=== PATIENT | male | born 1940 | race Caucasian/White ===

== ENCOUNTER 2016-12-12 10:18 | Day surgery (SDC) | payer MEDICARE, OTHER ==
[~2016-12-12 10:18] MED LIST: CHONDR SU A NA/HYALUR INTRAOC KIT (SURGICARE) ONE; KETOROLAC TROMETHAMINE 0.45% 4 DROP/0.4 ML DROPERETTE OS PRN; LIDOCAINE 1% INJ-PF (10 MG/ML) 30 ML SDV ONE; MIDAZOLAM 2 MG/2 ML INJ ONE; PHENYLEPHRINE/KETOROLAC 1%-0.3% 4 ML VIAL ONE
[2016-12-12] MEDS: TROPICAMIDE 1% OPH SOLN 3 ML OS PRN ×3 (11:02→11:23)
[2016-12-12] MEDS: CYCLOPENTOLATE 0.2%/PHENYLEPHRINE 1% OPH SOLN 2 ML OS PRN ×3 (11:02→11:23)
[2016-12-12] MEDS: BESIFLOXACIN HCL 0.6% OPH SUSP 5 ML BOTTLE OS PRN ×3 (11:03→12:01)
[2016-12-12] MEDS: TETRACAINE HCL 0.5% OPH SOLN 2 ML OS PRN ×3 (11:04→11:36)
[2016-12-12] MEDS ORDERED: MIDAZOLAM 2 MG/2 ML INJ ONE (11:30)
--- NOTE | 2016-12-13 13:07 | [facility] OPERATIVE REPORT E ---
[facility] Operative Report NAME: LIA VILLASEÑOR AGE: 76Y DATE OF SURGERY: 12/12/2016 ROOM: PREOPERATIVE DIAGNOSES: 1. Cataract, left eye. 2. Pupil myosis, left eye. PROCEDURE: Complex cataract extraction with the use of a Malyugin ring due to poor pupillary dilation. SURGEON: HOWARD SHAFER M.D. ANESTHESIA: Topical. PROCEDURE: After obtaining appropriate consent, the patient's left eye was prepped and draped in sterile fashion as well as the surgeon in a sterile manner and cataract surgery was started. First a paracentesis blade was used to make a small side-port incision. Viscoelastic was used to inflate the anterior chamber. Next a 2.4 mm incision was made with the paracentesis blade. A continuous capsulorrhexis incision was made using a cystotome and Utrata forceps. Following this hydrodissection was carried out to make the lens fully loose and mobile and it was rotated 90 degrees. Following this, a ivmezo-lsz-iayptog technique was used to phacoemulsify the lens with a CDE of 12.44. The remaining cortex was removed with irrigation/aspiration. Provisc was instilled into the capsular bag to inflate the bag. A SN60WF, 21.0 diopter lens was placed. The remaining viscoelastic material was removed with irrigation/aspiration. Following this, a 10-0 nylon suture was used to close the incision and it was found to be watertight. Vigamox was instilled in the eye and a protective shield was placed over the eye. The patient returned to the postoperative recovery in stable condition. Prior to making the capsulorrhexis, a Malyugin ring was inserted due to poor pupillary dilation. This was removed at the end of the case. DICTATING PHYSICIAN: HOWARD SHAFER M.D. [id number] PHY#: [id number] ID: [id number] JOB#: [id number] ACCT: [id number] cc:HOWARD SHAFER M.D. >
--- NOTE | 2016-12-13 13:12 | [facility] DISCHARGE SUMMARY E ---
[facility] Discharge Summary NAME: LIA VILLASEÑOR AGE: 76Y ADMITTED: 12/12/2016 DISCHARGED: 12/12/2016 HISTORY: This is a 76-year-old male who underwent complex cataract extraction of the left eye with use of a Malyugin ring. DIAGNOSES: 1. Cataract, left eye. 2. Pupil myosis, left eye. 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 He should be on a regular diet. No bending at his waist. No heavy lifting. He should use his Besivance, Ilevro, and Durezol at 3 p.m. and 8 p.m. and sleep with a rigid shield, and I will see him for his one day postoperative tomorrow. DICTATING PHYSICIAN: HOWARD SHAFER M.D. [id number] PHY#: [id number] ID: [id number] JOB#: [id number] ACCT: [id number] cc:HOWARD SHAFER M.D. >
== END 2016-12-12 12:45 | disposition home or self-care (01) ==
LOC: SC 10:18
PROVIDERS: ATTEND Internal Medicine
PROC: 08RK3JZ Replacement of Left Lens with Synthetic Substitute, Percutaneous Approach (ICD-10-PCS; principal; 2016-12-12 11:30)
DX: H25.12 Age-related nuclear cataract, left eye (principal); H57.03 Miosis; F17.210 Nicotine dependence, cigarettes, uncomplicated; E11.9 Type 2 diabetes mellitus without complications; D64.9 Anemia, unspecified; K21.9 Gastro-esophageal reflux disease without esophagitis; Z79.84 Long term (current) use of oral hypoglycemic drugs; Z79.899 Other long term (current) drug therapy; Z85.46 Personal history of malignant neoplasm of prostate; Z85.028 Personal history of other malignant neoplasm of stomach
CPT/HCPCS: 66982; 82962; V2632; J2250; J3490 ×2; C9447; 142

== ENCOUNTER 2017-01-17 17:02 | Emergency (ER) | payer OTHER, MEDICARE ==
[2017-01-17] MEDS ORDERED: NORMAL SALINE 1000 ML 1,000 ML IV ONE ×2 (17:36→19:56)
--- NOTE | 2017-01-17 17:39 | ER Document Report ---
ED Medical Screen (RME) - General Chief Complaint: Weakness Stated Complaint: WEAKNESS Time Seen by Provider: 01/17/17 17:35 Mode of Arrival: Wheelchair Information source: Patient TRAVEL OUTSIDE OF THE [place] IN LAST 30 DAYS: No - HPI Patient complains to provider of: weakness Onset: Other - pt c/o weakness, fatigue, and wt. loss secondary to anorexia for several days - Related Data Allergies/Adverse Reactions: No Known Allergies Allergy (Verified 01/17/17 17:11) Past Medical History - Past Medical History Cardiac Medical History: Denies: Hx Heart Attack, Hx Hypertension Pulmonary Medical History: Denies: Hx Asthma Neurological Medical History: Denies: Hx Cerebrovascular Accident, Hx Seizures Endocrine Medical History: Reports: Hx Diabetes Mellitus Type 2 Renal/ Medical History: Denies: Hx Peritoneal Dialysis GI Medical History: Reports: Hx Gastroesophageal Reflux Disease. Denies: Hx Hepatitis, Hx Hiatal Hernia, Hx Ulcer Infectious Medical History: Denies: Hx Hepatitis Past Surgical History: Reports: Hx Pacemaker. Denies: Hx Open Heart Surgery. Comment Only: Hx Cardiac Surgery - pacemaker for bradycardia Physical Exam - Vital signs Vitals: Temp Pulse Resp BP Pulse Ox 97.8 F 64 16 121/90 H 100 01/17/17 17:12 01/17/17 17:12 01/17/17 17:12 01/17/17 17:12 01/17/17 17:12 Course - Vital Signs Vital signs: Temp Pulse Resp BP Pulse Ox 97.8 F 64 16 121/90 H 100 01/17/17 17:12 01/17/17 17:12 01/17/17 17:12 01/17/17 17:12 01/17/17 17:12
--- NOTE | 2017-01-17 18:33 | RADIOLOGY REPORT (SQ) ---
EXAM DESCRIPTION: CHEST PA/LAT COMPLETED DATE/TIME: 01/17/2017 6:20 pm REASON FOR STUDY: weakness COMPARISON: None. EXAM PARAMETERS: NUMBER OF VIEWS: two views TECHNIQUE: Digital Frontal and Lateral radiographic views of the chest acquired. RADIATION DOSE: NA LIMITATIONS: none FINDINGS: LUNGS AND PLEURA: The lungs are significantly hyperexpanded. There is no infiltrate or pl eural effusion. There is questionable 18 mm nodule in the left upper lobe. There are confluent rib and scapular markings at this location. MEDIASTINUM AND HILAR STRUCTURES: No masses or contour abnormalities. HEART AND VASCULAR STRUCTURES: Heart normal size. No evidence for failure. BONES: No acute findings. HARDWARE: Pacemaker OTHER: No other significant finding. IMPRESSION: 1. Chronic lung changes no acute cardiopulmonary disease. 2. Questionable 18 mm pulmonary nodule. TECHNICAL DOCUMENTATION: JOB ID: [id number]- All Rights Reserved
[2017-01-17 18:41] LABS: ABSOLUTE BASOPHILS # (AUTO) 0.1 10^3/uL (0.0-0.2); ABSOLUTE LYMPHOCYTES (AUTO) 2.4 10^3/uL (0.5-4.7); ABSOLUTE MONOCYTES (AUTO) 0.5 10^3/uL (0.1-1.4); ABSOLUTE NEUT (AUTO) 5.4 10^3/uL (1.7-8.2); BASOPHILS % (AUTO) 0.8 % (0-2); EOSINOPHILS % (AUTO) 0.6 % (0-6); HEMATOCRIT 45.9 % (37.9-51.0); HEMOGLOBIN 16.3 g/dL (13.5-17.0); LYMPHOCYTES % (AUTO) 28.6 % (13-45); MEAN CORPUSCULAR HEMOGLOBIN 35.7 pg (27.0-33.4); MEAN CORPUSCULAR HGB CONC 35.5 g/dL (32.0-36.0); MEAN CORPUSCULAR VOLUME 100 fl (80-97); MONOCYTES % (AUTO) 6.2 % (3-13); RED BLOOD COUNT 4.57 10^6/uL (4.35-5.55); RED CELL DISTRIBUTION WIDTH 14.8 % (11.5-14.0); SEGMENTED NEUTROPHILS % (AUTO) 63.8 % (42-78); WHITE BLOOD COUNT 8.4 10^3/uL (4.0-10.5)
--- NOTE | 2017-01-17 19:32 | EKG REPORT ---
SEVERITY:- ABNORMAL ECG - ATRIAL-PACED COMPLEXES FIRST DEGREE AV BLOCK BORDERLINE RIGHT AXIS DEVIATION SUSPECT OLD LATERAL FL : Confirmed by: Gagandeep Del Toro MD 17-Jan-2017 19:32:12
--- NOTE | 2017-01-17 19:48 | ER Document Report ---
ED General - General Chief Complaint: Weakness Stated Complaint: WEAKNESS Time Seen by Provider: 01/17/17 17:35 Mode of Arrival: Wheelchair Notes: The patient is a 76-year-old male, past medical history gastric and esophageal cancer several years ago in remission, presents with generalized weakness for the past several weeks. According to his son, the patient only drinks coffee and Pepsi and no water. He had a small amount of diarrhea, but denies nausea, vomiting, abdominal pain, fevers, chest pain, shortness of breath, back pain, current diarrhea, focal weakness, numbness, tingling or headache. TRAVEL OUTSIDE OF THE [place] IN LAST 30 DAYS: No - Related Data Allergies/Adverse Reactions: No Known Allergies Allergy (Verified 01/17/17 17:11) Past Medical History - General Information source: Patient - Social History Smoking Status: Current Every Day Smoker Family History: Reviewed & Not Pertinent - Past Medical History Cardiac Medical History: Denies: Hx Heart Attack, Hx Hypertension Pulmonary Medical History: Denies: Hx Asthma Neurological Medical History: Denies: Hx Cerebrovascular Accident, Hx Seizures Endocrine Medical History: Reports: Hx Diabetes Mellitus Type 2 Renal/ Medical History: Denies: Hx Peritoneal Dialysis GI Medical History: Reports: Hx Gastroesophageal Reflux Disease. Denies: Hx Hepatitis, Hx Hiatal Hernia, Hx Ulcer Infectious Medical History: Denies: Hx Hepatitis Past Surgical History: Reports: Hx Pacemaker. Denies: Hx Open Heart Surgery. Comment Only: Hx Cardiac Surgery - pacemaker for bradycardia Review of Systems - Review of Systems Notes: REVIEW OF SYSTEMS: CONSTITUTIONAL: -fevers, -chills EENT: -eye pain, -difficulty swallowing, -nasal congestion CARDIOVASCULAR:-chest pain, -syncope. RESPIRATORY: -cough, -SOB GASTROINTESTINAL: -abdominal pain, - nausea, -vomiting, -diarrhea GENITOURINARY: -dysuria, -hematuria MUSCULOSKELETAL: -back pain, -neck pain SKIN: -rash or skin lesions. HEMATOLOGIC: -easy bruising or bleeding. LYMPHATIC: -swollen, enlarged glands. NEUROLOGICAL: -altered mental status or loss of consciousness, -headache, - neurologic symptoms PSYCHIATRIC: -anxiety, -depression. ALL OTHER SYSTEMS REVIEWED AND NEGATIVE. Physical Exam - Vital signs Vitals: Temp Pulse Resp BP Pulse Ox 97.8 F 64 16 121/90 H 100 01/17/17 17:12 01/17/17 17:12 01/17/17 17:12 01/17/17 17:12 01/17/17 17:12 - Notes Notes: PHYSICAL EXAMINATION: GENERAL: Well-appearing, well-nourished and in no acute distress. HEAD: Atraumatic, normocephalic. EYES: Pupils equal round and reactive to light, extraocular movements intact, sclera anicteric, conjunctiva are normal. ENT: nares patent, oropharynx clear without exudates. Moist mucous membranes. NECK: Normal range of motion, supple without lymphadenopathy LUNGS: Breath sounds clear to auscultation bilaterally and equal. No wheezes rales or rhonchi. HEART: Regular rate and rhythm without murmurs ABDOMEN: Soft, nontender, normoactive bowel sounds. No guarding, no rebound. No masses appreciated. EXTREMITIES: Normal range of motion, no pitting or edema. No cyanosis. NEUROLOGICAL: Cranial nerves grossly intact. Normal speech, normal gait. Normal sensory and motor exams. PSYCH: Normal mood, normal affect. SKIN: Warm, Dry, normal turgor, no rashes or lesions noted. Course - Re-evaluation Re-evalutation: Patient appears well. He is drinking in the emergency room and has no focal neuro signs. Labs are unremarkable, other than a slight hypokalemia. Provided patient with potassium repletion instructed him to follow-up with his primary care physician for a recheck of his potassium. Given strict return precautions and he understands. - Vital Signs Vital signs: Temp Pulse Resp BP Pulse Ox 97.8 F 72 16 147/99 H 100 01/17/17 17:12 01/17/17 19:42 01/17/17 19:42 01/17/17 19:42 01/17/17 19:42 - Laboratory Result Diagrams: 01/17/17 17:50 01/17/17 19:40 Laboratory results interpreted by me: 01/17/17 01/17/17 01/17/17 17:50 19:40 20:24 MCV 100 H MCH 35.7 H RDW 14.8 H Plt Count 111 L Sodium 135.7 L Potassium 2.9 L* Direct Bilirubin 0.5 H AST 82 H ALT 166 H Creatine Kinase 32 L Ur Leukocyte Esterase SMALL H - EKG Interpretation by Oh EKG shows normal: Sinus rhythm, [place], Intervals, QRS Complexes, ST-T Waves Rate: Normal Discharge - Discharge Clinical Impression: Hypokalemia, Generalized weakness Condition: Stable Disposition: HOME, SELF-CARE Additional Instructions: HYPOKALEMIA: You have an abnormally decreased level of serum potassium. Hypokalemia may cause weakness, fatigue, or heart rhythm abnormalities. Sometimes there are no symptoms at all. Usually, low serum potassium is due to taking diuretics ( water pills). It can also be due to excessive vomiting or diarrhea. If no obvious cause is evident, further evaluation will be necessary. Treatment is usually oral potassium supplements. Take these exactly as prescribed. You may also want to select foods which are naturally high in potassium -- fruits (such as bananas, cantaloupe, grapes, oranges, prunes, tomatoes), fresh vegetables (potatoes, spinach, beans, peas), orange or tomato juice, tomato pasta sauce, milk, fish (halibut, tuna, salmon, nu) A follow-up blood test is usually performed to assure that the potassium is returning to normal. Call the physician if you suffer severe weakness, muscle twitching or cramping, palpitations (pounding or irregular heartbeat), or any other new or alarming symptoms. POTASSIUM: A potassium-containing medication has been prescribed. This is usually used to treat potassium depletion caused by diuretics or by vomiting and diarrhea. This type of medicine is available in many forms, including elixirs, powders, fruity drinks, and pills. If one type is not working out for you, another can be substituted. Potassium can cause stomach upset. This can be prevented by taking it with meals. Do not take more than your doctor recommends. Notify your doctor if you develop repeated vomiting, black or bloody stool , severe weakness or numbness. FOODS HIGH IN POTASSIUM: baked potato with skin 1080 mg tomato pasta sauce, 1 cup 940 sweet potato with skin 690 orange juice, 1 cup 480 haitian chard 480 tuna, 3 oz 480 cantaloupe, 1 cup 430 banana 420 spinach 420 yogurt, plain, nofat, 6 oz 400 milk, 1 cup 370 watermelon, 2 cups 340 tomato, 1/2 cup 210 Other foods high in potassium are most other fruits and vegetables and fish. FOLLOW-UP CARE: If you have been referred to a physician for follow-up care, call the physician s office for an appointment as you were instructed or within the next two days. If you experience worsening or a significant change in your symptoms, notify the physician immediately or return to the Emergency Department at any time for re-evaluation.
[2017-01-17 20:17] LABS: ALANINE AMINOTRANSFERASE 166 U/L (21-72); ALBUMIN 3.8 g/dL (3.5-5.0); ALKALINE PHOSPHATASE 108 U/L (38-126); ANION GAP 10 (5-19); ASPARTATE AMINO TRANSFERASE 82 U/L (17-59); BILIRUBIN,DIRECT 0.5 mg/dL (0.0-0.4); BILIRUBIN,TOTAL 0.9 mg/dL (0.2-1.3); BLOOD UREA NITROGEN 12 mg/dL (7-20); CALCIUM 8.8 mg/dL (8.4-10.2); CARBON DIOXIDE 27 mmol/L (22-30); CHLORIDE 99 mmol/L (98-107); CREATINE KINASE 32 U/L (55-170); CREATININE RESULT 0.81 mg/dL (0.52-1.25); GLUCOSE 110 mg/dL (75-110); SODIUM 135.7 mmol/L (137-145); TOTAL PROTEIN 6.3 g/dL (6.3-8.2)
[2017-01-17 20:19] LABS: POTASSIUM 2.9 mmol/L (3.6-5.0)
[2017-01-17 20:30] LABS: CREATINE KINASE MB 0.32 ng/mL (<4.55); TROPONIN I 0.024 ng/mL
[2017-01-17] MEDS ORDERED: POTASSIUM CHLORIDE 10 MEQ TABLET.SA PO ONE (20:34)
[2017-01-17] MEDS ORDERED: POTASSIUM CHLORIDE 20 MEQ/15 ML UDCUP PO ONE (20:35)
[2017-01-17 21:02] LABS: APPEARANCE,URINE SLIGHTLY-CLOUDY; BILIRUBIN,URINE NEGATIVE (NEGATIVE); GLUCOSE, URINE NEGATIVE (NEGATIVE); KETONES,URINE NEGATIVE (NEGATIVE); LEUKOCYTE ESTERASE,URINE SMALL (NEGATIVE); NITRITE,URINE NEGATIVE (NEGATIVE); PROTEIN,URINE NEGATIVE (NEGATIVE); URINE SPECIFIC GRAVITY 1.005; UROBILINOGEN,URINE NEGATIVE mg/dL (<2.0)
[2017-01-17 21:46] VITALS: BP 132/86
== END 2017-01-17 21:59 | disposition home or self-care (01) ==
LOC: ER 17:02
DX: R53.1 Weakness (principal); E87.6 Hypokalemia; R19.7 Diarrhea, unspecified; E11.9 Type 2 diabetes mellitus without complications; F17.200 Nicotine dependence, unspecified, uncomplicated; Z85.01 Personal history of malignant neoplasm of esophagus; Z85.028 Personal history of other malignant neoplasm of stomach; Z95.0 Presence of cardiac pacemaker
CPT/HCPCS: 93005; 99285; 96360; 96361; 36415; 82553; 82550; 85025; 80053; 81001; 84484; 71020; 93010; J7030

== ENCOUNTER 2017-02-07 18:55 | Inpatient (IN) | payer OTHER, MEDICARE ==
[2017-02-07] MEDS ORDERED: NORMAL SALINE 1000 ML 1,000 ML IV ONE (19:29)
--- NOTE | 2017-02-07 19:32 | ER Document Report ---
ED Medical Screen (RME) - General Chief Complaint: Weakness Stated Complaint: ABDOMINAL PAINS Time Seen by Provider: 02/07/17 19:29 Notes: 76-year-old male complaining of the past 2 weeks, became weaker while in the emergency department with his and decided to be seen. TRAVEL OUTSIDE OF THE [place] IN LAST 30 DAYS: No - Related Data Allergies/Adverse Reactions: No Known Allergies Allergy (Verified 02/07/17 19:14) Past Medical History - General Information source: Patient - Social History Cigarette use (# per day): No Frequency of alcohol use: None Drug Abuse: None Lives with: Spouse/Significant other - Past Medical History Cardiac Medical History: Denies: Hx Heart Attack, Hx Hypertension Pulmonary Medical History: Denies: Hx Asthma Neurological Medical History: Denies: Hx Cerebrovascular Accident, Hx Seizures Endocrine Medical History: Reports: Hx Diabetes Mellitus Type 2 Renal/ Medical History: Denies: Hx Peritoneal Dialysis GI Medical History: Reports: Hx Gastroesophageal Reflux Disease. Denies: Hx Hepatitis, Hx Hiatal Hernia, Hx Ulcer Infectious Medical History: Denies: Hx Hepatitis Past Surgical History: Reports: Hx Pacemaker. Denies: Hx Open Heart Surgery. Comment Only: Hx Cardiac Surgery - pacemaker for bradycardia Physical Exam - Vital signs Vitals: Pulse Resp BP Pulse Ox 77 18 105/80 100 02/07/17 19:10 02/07/17 19:10 02/07/17 19:10 02/07/17 19:10 - Notes Notes: General cool to the touch HEENT normocephalic atraumatic, tip of the nose is slightly blue, this appears to be from superficial veins rather than true cyanosis Heart-regular rate and rhythm Lungs clear to auscultation bilaterally Skin is cool to the touch normal turgor. Course - Vital Signs Vital signs: Temp Pulse Resp BP Pulse Ox 77 18 105/80 100 02/07/17 19:10 02/07/17 19:10 02/07/17 19:10 02/07/17 19:10
[2017-02-07 20:27] LABS: VENOUS BLOOD BASE EXCESS -1.6 mmol/L; VENOUS BLOOD HCO3 28.7 mmol/L (20-32)
[2017-02-07 20:34] LABS: VENOUS BLOOD PCO2 76.1 mmHg (35-63)
[2017-02-07 20:42] LABS: ABSOLUTE BASOPHILS # (AUTO) 0.1 10^3/uL (0.0-0.2); ABSOLUTE LYMPHOCYTES (AUTO) 2.2 10^3/uL (0.5-4.7); ABSOLUTE MONOCYTES (AUTO) 0.5 10^3/uL (0.1-1.4); ABSOLUTE NEUT (AUTO) 5.9 10^3/uL (1.7-8.2); BASOPHILS % (AUTO) 0.8 % (0-2); EOSINOPHILS % (AUTO) 0.2 % (0-6); HEMATOCRIT 41.1 % (37.9-51.0); HEMOGLOBIN 14.6 g/dL (13.5-17.0); HGB HCT DIFFERENCE 2.7; LYMPHOCYTES % (AUTO) 25.4 % (13-45); MEAN CORPUSCULAR HEMOGLOBIN 35.8 pg (27.0-33.4); MEAN CORPUSCULAR HGB CONC 35.5 g/dL (32.0-36.0); MEAN CORPUSCULAR VOLUME 101 fl (80-97); MONOCYTES % (AUTO) 5.4 % (3-13); RED BLOOD COUNT 4.07 10^6/uL (4.35-5.55); SEGMENTED NEUTROPHILS % (AUTO) 68.2 % (42-78); WHITE BLOOD COUNT 8.7 10^3/uL (4.0-10.5)
[2017-02-07 20:46] LABS: VENOUS BLOOD PH 7.19 (7.30-7.42)
[2017-02-07 20:50] LABS: ALANINE AMINOTRANSFERASE 173 U/L (21-72); ALBUMIN 4.5 g/dL (3.5-5.0); ALKALINE PHOSPHATASE 128 U/L (38-126); ANION GAP 15 (5-19); ASPARTATE AMINO TRANSFERASE 137 U/L (17-59); BILIRUBIN,DIRECT 0.7 mg/dL (0.0-0.4); BILIRUBIN,TOTAL 1.2 mg/dL (0.2-1.3); BLOOD UREA NITROGEN 24 mg/dL (7-20); CALCIUM 9.5 mg/dL (8.4-10.2); CARBON DIOXIDE 24 mmol/L (22-30); CHLORIDE 100 mmol/L (98-107); CREATINE KINASE 55 U/L (55-170); CREATININE RESULT 1.08 mg/dL (0.52-1.25); GLUCOSE 157 mg/dL (75-110); LIPASE 131.1 U/L (23-300); POTASSIUM 3.6 mmol/L (3.6-5.0); SODIUM 139.3 mmol/L (137-145); TOTAL PROTEIN 7.3 g/dL (6.3-8.2)
[2017-02-07] MEDS ORDERED: CEFEPIME 2 GM/D5W RTU 2 GM/50 ML RTUPB IV ONE (20:56)
[2017-02-07] MEDS ORDERED: VANCOMYCIN HCL INJ 1000 MG VIAL IV ONE (20:56)
--- NOTE | 2017-02-07 20:56 | RADIOLOGY REPORT (SQ) ---
EXAM DESCRIPTION: CHEST SINGLE VIEW COMPLETED DATE/TIME: 02/07/2017 8:35 pm REASON FOR STUDY: weakness, hypothermia COMPARISON: 01/17/2017 NUMBER OF VIEWS: One view. TECHNIQUE: Single frontal radiographic view of the chest acquired. LIMITATIONS: None. FINDINGS: LUNGS AND PLEURA: Again noted is a possible nodule within the left upper lobe. No new opa cities, masses or pneumothorax. No pleural effusion. Attenuated blood vessels and flattened santos-diap hragms. MEDIASTINUM AND HILAR STRUCTURES: No masses. Contour normal. HEART AND VASCULAR STRUCTURES: Heart normal in size. Normal vasculature. BONES: No acute findings. HARDWARE: None in the chest. OTHER: No other significant finding. IMPRESSION: COPD. NO ACUTE RADIOGRAPHIC FINDING IN THE CHEST. AGAIN NOTED IS A POSSIBLE NODULE WIT HIN THE LEFT UPPER LOBE. FOLLOW-UP CHEST CT RECOMMENDED. TECHNICAL DOCUMENTATION: JOB ID: [id number] [employer]- All Rights Reserved
[2017-02-07 21:01] LABS: CREATINE KINASE MB 0.5 ng/mL (<4.55); TROPONIN I 0.023 ng/mL
[2017-02-07 22:18] LABS: PROTHROMBIN TIME 16.2 SEC (11.4-15.4)
--- NOTE | 2017-02-07 22:42 | ER Document Report ---
ED General - General Chief Complaint: Weakness Stated Complaint: ABDOMINAL PAINS Time Seen by Provider: 02/07/17 19:29 Notes: Patient is a 76-year-old male who presents emergency department with his son and [id number]-fdy complaining of weakness, decreased appetite over the past 2 weeks. Was last seen at the [facility] on Friday. Denies any fever, chills, nausea, vomiting, diarrhea constipation, decreased urinary output, pyuria, hematuria. Denies any abdominal pain at this time. Per son's report his dad is been losing weight for approximately 6 months and has been seen at the [facility] for this but just told to continue Ensure and intake of calories. Otherwise son denies any other acute medical problems. He states that he is diabetic on metformin. Otherwise he admits to previous histories of esophageal cancer status post resection in the , and prostate cancer that has been in remission. He states that even with his recent weight loss over the past 6 months he has not had any repeat PET scans. TRAVEL OUTSIDE OF THE [place] IN LAST 30 DAYS: No - Related Data Allergies/Adverse Reactions: No Known Allergies Allergy (Verified 02/07/17 19:14) Past Medical History - General Information source: Patient - Social History Smoking Status: Smoker,Current Status Unk Cigarette use (# per day): No Frequency of alcohol use: None Drug Abuse: None Lives with: Spouse/Significant other Family History: Reviewed & Not Pertinent - Past Medical History Cardiac Medical History: Denies: Hx Heart Attack, Hx Hypertension Pulmonary Medical History: Denies: Hx Asthma Neurological Medical History: Denies: Hx Cerebrovascular Accident, Hx Seizures Endocrine Medical History: Reports: Hx Diabetes Mellitus Type 2 Renal/ Medical History: Denies: Hx Peritoneal Dialysis GI Medical History: Reports: Hx Gastroesophageal Reflux Disease. Denies: Hx Hepatitis, Hx Hiatal Hernia, Hx Ulcer Infectious Medical History: Denies: Hx Hepatitis Past Surgical History: Reports: Hx Pacemaker. Denies: Hx Open Heart Surgery. Comment Only: Hx Cardiac Surgery - pacemaker for bradycardia Review of Systems - Review of Systems Constitutional: See HPI EENT: No symptoms reported Cardiovascular: No symptoms reported Respiratory: No symptoms reported Gastrointestinal: See HPI Genitourinary: No symptoms reported Musculoskeletal: No symptoms reported Neurological/Psychological: See HPI -: Yes All other systems reviewed and negative Physical Exam - Vital signs Vitals: Pulse Resp BP Pulse Ox 77 18 105/80 100 02/07/17 19:10 02/07/17 19:10 02/07/17 19:10 02/07/17 19:10 - Notes Notes: PHYSICAL EXAM GENERAL: Cachectic, alert, interacts well. HEAD: Normocephalic, atraumatic. EYES: Pupils equal, round, and reactive to light. Extraocular movements intact. ENT: Oral mucosa moist, tongue midline. cyanotic around his lips and nose NECK: Full range of motion. Supple. Trachea midline. LUNGS: Clear to auscultation bilaterally, no wheezes, rales, or rhonchi. No respiratory distress. HEART: Regular rate and rhythm. No murmurs, gallops, or rubs. ABDOMEN: Soft, nondistended, positive murphys sign. No guarding, rebound, or rigidity.. Bowel sounds present in all 4 quadrants. EXTREMITIES: Moves all 4 extremities spontaneously. No edema, radial and dorsalis pedis pulses 2/4 bilaterally. No cyanosis. NEUROLOGICAL: Alert and oriented x4. Normal speech. PSYCH: Normal affect, normal mood. SKIN: Warm, dry, normal turgor. No rashes or lesions noted. Course - Re-evaluation Re-evalutation: 02/07/17 19:30 Patient is a 76-year-old male who presents emergency department with decreased appetite for 2 weeks. Labs show evidence of sepsis based on hypothermic rectal temperature of 96.1, lactic acid of 4.5 without any elevation of white blood cell count, and evidence of respiratory acidosis on venous blood gas with a pH of 7.19 and a PCO2 of 76. Patient initiated on BiPAP for respiratory acidosis. Concern for abdominal pathology given right upper quadrant tenderness and elevated LFTs. Right upper quadrant ultrasound ordered, patient initiated on broad-spectrum antibiotics, IV fluids. 02/07/17 22:45 Right upper quadrant ultrasound with evidence of perihepatic ascites but no evidence of common bile duct stones or cholecystitis. Given concerns for sepsis and concern for abdominal pathology I have consulted night hospitalist Dr. Stevens for admission. 02/07/2017 23:30 Dr. Stevens requesting additional workup in the emergency department given source unidentified for sepsis. cyanosis is improved and repeat gas shows acidosis is resolved. After IV hydration and broad-spectrum antibiotics lactic his dropped to 1.8. I discussed this patient with supervising physician Dr. Douglas Nolasco who recommends that the patient cannot be discharged home given respiratory acidosis and severe sepsis and meets inpatient criteria. 02/08/17 2:30 Patient accepted for admission under Dr. Stevens for sepsis. Patient states he is feeling much better now that he has been on BiPAP. Per [facility] protocol and guidelines, this case was discussed with supervising physician Dr. Douglas Nolasco prior to admission - Vital Signs Vital signs: Temp Pulse Resp BP Pulse Ox 97.7 F 81 19 130/92 H 100 02/08/17 06:05 02/08/17 06:05 02/08/17 06:05 02/08/17 06:05 02/08/17 06:05 - Laboratory Result Diagrams: 02/07/17 19:45 02/08/17 03:48 Laboratory results interpreted by me: 02/07/17 02/07/17 02/07/17 19:26 19:45 19:45 RBC 4.07 L MCV 101 H MCH 35.8 H RDW 15.0 H Plt Count 96 L PT Carbonic Acid ABG pH ABG pCO2 ABG pO2 ABG O2 Saturation VBG pH VBG pCO2 BUN 24 H Glucose 157 H POC Glucose 149 H Lactic Acid Direct Bilirubin 0.7 H AST 137 H ALT 173 H Alkaline Phosphatase 128 H Urine Blood Urine Urobilinogen Ur Leukocyte Esterase 02/07/17 02/07/17 02/07/17 19:45 19:45 21:50 RBC MCV MCH RDW Plt Count PT 16.2 H Carbonic Acid ABG pH ABG pCO2 ABG pO2 ABG O2 Saturation VBG pH 7.19 L* VBG pCO2 76.1 H* BUN Glucose POC Glucose Lactic Acid 4.5 H Direct Bilirubin AST ALT Alkaline Phosphatase Urine Blood Urine Urobilinogen Ur Leukocyte Esterase 02/07/17 02/08/17 22:10 02:25 RBC MCV MCH RDW Plt Count PT Carbonic Acid 1.02 L ABG pH 7.47 H ABG pCO2 33.8 L ABG pO2 205.0 H ABG O2 Saturation 99.5 H VBG pH VBG pCO2 BUN Glucose POC Glucose Lactic Acid Direct Bilirubin AST ALT Alkaline Phosphatase Urine Blood SMALL H Urine Urobilinogen 2.0 H Ur Leukocyte Esterase TRACE H - Diagnostic Test Radiology reviewed: Reports reviewed - EKG Interpretation by Me EKG shows normal: Sinus rhythm Rate: Normal Rhythm: NSR Critical Care Note - Critical Care Note Total time excluding time spent on procedures (mins): 35 Comments: 35 minutes of critical care time spent in direct contact evaluating and reevaluating the patient, treating symptoms, reviewing labs and studies and speaking with family and consultants excluding any procedures Discharge - Discharge Clinical Impression: Respiratory acidosis Sepsis Qualifiers: Sepsis type: sepsis due to unspecified organism Qualified Code(s): A41.9 - Sepsis, unspecified organism Condition: Stable Disposition: ADMITTED INPATIENT Admitting Provider: [facility] Unit Admitted: Telemetry
[2017-02-07 22:43] LABS: APPEARANCE,URINE SLIGHTLY-CLOUDY; BILIRUBIN,URINE NEGATIVE (NEGATIVE); GLUCOSE, URINE NEGATIVE (NEGATIVE); KETONES,URINE NEGATIVE (NEGATIVE); LEUKOCYTE ESTERASE,URINE TRACE (NEGATIVE); NITRITE,URINE NEGATIVE (NEGATIVE); PROTEIN,URINE NEGATIVE (NEGATIVE); URINE SPECIFIC GRAVITY 1.018
[2017-02-07 23:37] LABS: VENOUS BLOOD BASE EXCESS 2.9 mmol/L; VENOUS BLOOD HCO3 29.7 mmol/L (20-32); VENOUS BLOOD PCO2 55.9 mmHg (35-63); VENOUS BLOOD PH 7.34 (7.30-7.42)
--- NOTE | 2017-02-08 00:17 | EKG REPORT ---
SEVERITY:- ABNORMAL ECG - ATRIAL-PACED COMPLEXES FIRST DEGREE AV BLOCK NONSPECIFIC ST-T CHANGES : Confirmed by: Kayy Rodriguez 08-Feb-2017 00:17:34
--- NOTE | 2017-02-08 00:29 | RADIOLOGY REPORT (SQ) ---
EXAM DESCRIPTION: U/S ABDOMEN COMPLETE W/DOPPLER COMPLETED DATE/TIME: 02/07/2017 11:49 pm REASON FOR STUDY: RUQ tenderness COMPARISON: None. TECHNIQUE: Dynamic and static grayscale images acquired of the abdomen and recorded on PACS. Additio nal selected color Doppler and spectral images recorded. LIMITATIONS: None. FINDINGS: PANCREAS: No masses. Visualized pancreatic duct normal caliber. LIVER: No masses. Echotexture normal. Small perihepatic fluid. LIVER VASCULATURE: Normal directional flow of the main portal vein and hepatic veins. GALLBLADDER: No stones. Normal wall thickness. No pericholecystic fluid. ULTRASOUND-DETECTED CASTILLO'S SIGN: Negative. INTRAHEPATIC DUCTS AND COMMON DUCT: CBD and intrahepatic ducts normal caliber. No filling defects. INFERIOR VENA CAVA: Normal flow. AORTA: No aneurysm. Atherosclerosis. RIGHT KIDNEY: Normal size. Mild chronic medicorenal disease. No solid or suspicious masses. No h ydronephrosis. No calcifications. LEFT KIDNEY: Normal size. Mild chronic medicorenal disease. No solid or suspicious masses. No h ydronephrosis. No calcifications. 6.1 cm likely benign mildly complicated cyst not definitively ch aracterized. SPLEEN: Normal size. No solid masses. PERITONEAL AND PLEURAL SPACES: No ascites or effusions. OTHER: No other significant finding. IMPRESSION: Small perihepatic ascites. Else, no acute findings. TECHNICAL DOCUMENTATION: JOB ID: [id number]- All Rights Reserved
[2017-02-08] MEDS ORDERED: ACETAMINOPHEN 325 MG TABLET PO PRN (02:50)
[2017-02-08] MEDS ORDERED: MAGNESIUM HYDROXIDE SUSP 30 ML UDCUP PO PRN (02:50)
[2017-02-08] MEDS ORDERED: IPRATROPIUM/ALBUTEROL 0.5-2.5 MG/3 ML AMPUL NEB PRN (02:50)
[2017-02-08] MEDS ORDERED: MAG HYDROX/AL HYDROX/SIMETH SUSP 30 ML UDCUP PO PRN (02:50)
[2017-02-08 02:52] LABS: ARTERIAL BLOOD BASE EXCESS 0.8 mmol/L; ARTERIAL BLOOD O2 SATURATION 99.5 % (94-98)
[2017-02-08] MEDS ORDERED: TRAZODONE HCL 50 MG TABLET PO PRN (02:55)
[2017-02-08] MEDS ORDERED: KETOROLAC TROMETHAMINE 0.45% 4 DROP/0.4 ML DROPERETTE OP PRN (02:55)
[2017-02-08] MEDS ORDERED: TRAMADOL HCL 50 MG TABLET PO PRN (02:55)
[2017-02-08] MEDS ORDERED: NICOTINE 14 MG/24 HR PATCH.TD24 TD ONE (02:57)
[2017-02-08] MEDS ORDERED: FOLIC ACID INJ 5 MG/1 ML 10 ML VIAL IV ONE (02:58)
[2017-02-08] MEDS ORDERED: CYANOCOBALAMIN (VITAMIN B-12) INJ 1000 MCG/1 ML VIAL IM ONE (02:58)
[2017-02-08] MEDS ORDERED: KETOROLAC TROMETHAMINE 0.45% 4 DROP/0.4 ML DROPERETTE OD SCH (03:00)
[2017-02-08] MEDS: POTASSI CL 20 MEQ/D5-1/2NS 1L 1,000 ML IV SCH ×2 (03:30→09:40)
[2017-02-08 04:20] LABS: ALANINE AMINOTRANSFERASE 125 U/L (21-72); ALBUMIN 3.3 g/dL (3.5-5.0); ALKALINE PHOSPHATASE 98 U/L (38-126); ANION GAP 8 (5-19); ASPARTATE AMINO TRANSFERASE 73 U/L (17-59); BILIRUBIN,DIRECT 0.5 mg/dL (0.0-0.4); BILIRUBIN,TOTAL 0.8 mg/dL (0.2-1.3); BLOOD UREA NITROGEN 23 mg/dL (7-20); CALCIUM 8.7 mg/dL (8.4-10.2); CARBON DIOXIDE 28 mmol/L (22-30); CHLORIDE 101 mmol/L (98-107); CREATININE RESULT 0.89 mg/dL (0.52-1.25); GLUCOSE 96 mg/dL (75-110); POTASSIUM 3.4 mmol/L (3.6-5.0); SODIUM 136.9 mmol/L (137-145); TOTAL PROTEIN 5.8 g/dL (6.3-8.2)
[2017-02-08 05:25] LABS: FOLATE > 20.00 ng/mL (>2.76)
--- NOTE | 2017-02-08 06:05 | RADIOLOGY REPORT (SQ) ---
EXAM DESCRIPTION: CT ABD/PELVIS WITH IV ORAL COMPLETED DATE/TIME: 02/08/2017 4:46 am REASON FOR STUDY: abd/ back pain hx prostate and esoph ca COMPARISON: 06.03.14 TECHNIQUE: CT scan of the abdomen and pelvis performed using helical scanning technique with dynamic intravenous contrast injection. No oral contrast. Images reviewed with lung, soft tissue, and bone windows. Reconstructed coronal and sagittal MPR images reviewed. Delayed images for evaluation of the urinary system also acquired. All images stored on PACS. All CT scanners at this facility use dose modulation, iterative reconstruction, and/or weight based d osing when appropriate to reduce radiation dose to as low as reasonably achievable (ALARA). [facility]: Dose Right [facility]: CareDose [facility]: Dose Right [facility]: Teradose 4D [facility]: [employer] CONTRAST TYPE AND DOSE: 58 mi Isovue 370- low osmolar. RENAL FUNCTION: Creatinine 1.1 RADIATION DOSE: . LIMITATIONS: No oral contrast. Cachexia. FINDINGS: LOWER CHEST: No significant findings. No nodules or infiltrates. Moderate centrilobular e mphysema of the lung bases. Small atelectasis or scar of the right lower lobe. LIVER: Normal size. No suspicious masses. No dilated ducts. 0.7 cm likely benign low attenuation le verna of the right hepatic lobe due to cyst or hemangioma, stable compared with prior exam from 2014. SPLEEN: Normal size. No focal lesions. PANCREAS: No masses. No significant calcifications. No adjacent inflammation or peripancreatic fluid collections. Pancreatic duct not dilated. GALLBLADDER: No identified stones by CT criteria. No inflammatory changes to suggest cholecystitis. ADRENAL GLANDS: No significant masses or asymmetry. RIGHT KIDNEY AND URETER: No solid masses. No significant calcifications. No hydronephrosis or hyd roureter. LEFT KIDNEY AND URETER: No solid masses. No significant calcifications. No hydronephrosis or hydr oureter. 5.9 cm likely benign simple cyst of the left kidney. AORTA AND VESSELS: Abdominal aorto bi-iliac graft repair with aortic graft diameter measuring 2.7 cm. RETROPERITONEUM: No retroperitoneal adenopathy, hemorrhage or masses. BOWEL AND PERITONEAL CAVITY: No masses or inflammatory changes. No free fluid or peritoneal masses. Small fluid distention of small bowel. APPENDIX: Normal. PELVIS: Nonspecific 0.9 cm ovoid filling defect in the posterior aspect of the right paracentral kashif dder on post excretion imaging relatively new compared with prior available exam, March 2012. ABDOMINAL WALL: No masses. No hernias. Bilateral inguinal surgical clips. BONES: Bony demineralization. Relative sclerosis of bilateral femoral epiphyses, chronic. OTHER: Cachexia. IMPRESSION: 1. Nonspecific 0.9 cm ovoid filling defect in the posterior aspect of the right paracen tral bladder on post excretion imaging relatively new compared with prior available exam, March 31. Consider Urology consultation. 2. Cachexia. Limitation. TECHNICAL DOCUMENTATION: JOB ID: [id number] Quality ID # [id number]: Final reports with documentation of one or more dose reduction techniques (e.g., Au tomated exposure control, adjustment of the mA and/or kV according to patient size, use of iterative reconstruction technique) 2010 [employer]- All Rights Reserved
--- NOTE | 2017-02-08 06:15 | RADIOLOGY REPORT (SQ) ---
EXAM DESCRIPTION: CTA CHEST COMPLETED DATE/TIME: 02/08/2017 4:46 am REASON FOR STUDY: lung nodule, hypotension, hypoxia COMPARISON: CR, 02/07/2017, 01/17/2017, 06/03/2014. TECHNIQUE: CT scan of the chest performed using helical scanning technique with dynamic intravenous contrast injection. Images reviewed with lung, soft tissue and bone windows. Reconstructed coronal and sagittal MPR images reviewed. Additional 3 dimensional post-processing performed to develop Maximal Intensity Projection images ([place] P). All images stored on PACS. All CT scanners at this facility use dose modulation, iterative reconstruction, and/or weight based d osing when appropriate to reduce radiation dose to as low as reasonably achievable (ALARA). [facility]: Dose Right [facility]: CareDose [facility]: Dose Right [facility]: Teradose 4D [facility]: 3scale CONTRAST TYPE AND DOSE: contrast/concentration: Isovue 370.00 mg/ml; Total Contrast Delivered: 58.0 ml; Total Saline Delivered: 99.1 ml Contrast bolus optimized for the pulmonary arteries. Not diagnostic for the aorta. RENAL FUNCTION: Creatinine 1.1 RADIATION DOSE: Up-to-date CT equipment and radiation dose reduction techniques were employed. CTDIv ol: 10.1 - 19.8 mGy. DLP: 1777 mGy-cm. . LIMITATIONS: None. FINDINGS: LUNGS AND PLEURA: No masses, infiltrates, pneumothorax. No pleural effusions, calcificati ons. Mild chronic interstitial markings, right more than left with dependent predominance. Emphysem atous hyperinflation. Tracheomalacia. [id number] bronchiectasis. AORTA AND GREAT VESSELS: No aneurysm. Contrast bolus not optimized for the aorta. Atherosclerosis. HEART: No pericardial effusion. No significant coronary artery calcifications. PULMONARY ARTERIES: No emboli visualized in the main pulmonary arteries or the segmental branches. HILAR AND MEDIASTINAL STRUCTURES: No identified masses or abnormal nodes. Mild dilation of the dista l esophagus. Suture material at the the expected gastroesophageal junction. HARDWARE: Right cardiac stimulation device and leads. UPPER ABDOMEN: See separate report of the CT of the abdomen. THYROID AND OTHER SOFT TISSUES: No masses. No adenopathy. BONES: Small sclerosis of the left 6th posterior rib. 3D MIPS: Confirm above findings. OTHER: Cachexia. IMPRESSION: 1. Small focal sclerosis of the left 6th posterior rib consistent with recent radiograp hs and not present on prior radiographs from May 2014. Differential diagnosis includes metastati c disease. Consider further evaluation with whole-body bone scan. No acute cardiopulmonary findings . No evidence of pulmonary embolus. COMMENT: Quality ID # [id number]: Final reports with documentation of one or more dose reduction techniques (e.g., Automated exposure control, adjustment of the mA and/or kV according to patient size, use of iterative reconstruction technique) TECHNICAL DOCUMENTATION: JOB ID: [id number] [employer]- All Rights Reserved
--- NOTE | 2017-02-08 06:44 | PDOC H&P ---
History of Present Illness Admission Date/PCP: 02/08/17 02:50 LINDA SHERIDAN MD Patient complains of: Abdominal pain with 30 pound weight loss History of Present Illness: LIA VILLASEÑOR is a 76 year old male with a past medical history of gastric cancer status post partial gastrectomy, prostate cancer and diabetes who is a very poor historian but states he has felt generally unwell for approximately a month associated with abdominal pain, anorexia and weight loss. In the emergency room he has cachexia, elevated LFTs, abnormal VBG all concerning for occult infection receiving broad-spectrum empiric antibiotics and referred to the hospitalist for admission. Patient denies chest pain, nausea vomiting or fever nor change in medications, admits intermittent confusion. Patient appears nontoxic. Past Medical History Cardiac Medical History: Denies: Myocardial Infarction, Hypertension Pulmonary Medical History: Denies: Asthma Neurological Medical History: Denies: Seizures Endocrine Medical History: Reports: Diabetes Mellitus Type 2 GI Medical History: Reports: Gastroesophageal Reflux Disease Denies: Hepatitis, Hiatal Hernia Psychiatric Medical History: Reports: Tobacco Dependency Hematology: Reports: Anemia Denies: Sickle Cell Disease Past Surgical History Past Surgical History: Reports: Pacemaker Social History Information Source: Patient, Emergency Med Personnel Lives with: Spouse/Significant other Smoking Status: Current Every Day Smoker Cigarettes Packs Per Day: 2 Number of Years Smokin Frequency of Alcohol Use: None Hx Recreational Drug Use: No Drugs: None Hx Prescription Drug Abuse: No - Advance Directive Resuscitation Status: Full Code Family History Family History: Hypertension Parental Family History Reviewed: Yes Children Family History Reviewed: Yes Sibling(s) Family History Reviewed.: Yes Medication/Allergy Home Medications: Finasteride [Proscar 5 Mg Tablet] 5 mg PO DAILY 03/30/12 Metformin HCl [Glucophage 500 Mg Tablet] 500 mg PO BID 03/30/12 Omeprazole 40 mg PO BID 03/30/12 Sertraline HCl [Zoloft] 200 mg PO QAM 03/30/12 Ascorbic Acid 250 mg PO DAILY PRN 12/09/16 Atorvastatin Calcium 40 mg PO DAILY 12/09/16 Calcium Carbonate/Vitamin D3 [Calcium 500-Vit D3 600 Tablet] 1 each PO DAILY Docusate Sodium 100 mg PO DAILY 12/09/16 Ferrous Sulfate [Iron] 325 mg PO DAILY 12/09/16 Ketorolac Tromethamine 0.45% [Acuvail 0.45% Oph Soln 0.4 ml/Dropperette] 1 drop OD . 3 & 8 PM TODAY 12/09/16 Mometasone Furoate 0.1 gm MC HSP PRN 12/09/16 Moxifloxacin HCl [Vigamox 0.5% Oph Soln 3 ml] 1 drop OP . 3 & 8 PM TODAY Prednisolone Acetate [Inflamase 1% Oph Susp 5 ml] 1 drop OP . 3 & 8 PM TODAY Sucralfate [Carafate 1 gm Tablet] 1 gm PO ASDIR PRN 12/09/16 Tramadol HCl [Ultram 50 mg Tablet] 50 mg PO ASDIR PRN 12/09/16 Trazodone HCl 50 mg PO PRN PRN 12/09/16 Ketorolac Tromethamine/Pf [Acuvail 0.45% Ophth Solution] 1 each OP ASDIR PRN Moxifloxacin HCl [Vigamox] 1 drop OP ASDIR PRN 01/02/17 Allergies/Adverse Reactions: No Known Allergies Allergy (Verified 02/07/17 19:14) Review of Systems ROS unobtainable: Due to mental status Physical Exam Vital Signs: Temp Pulse Resp BP Pulse Ox 97.7 F 81 19 130/92 H 100 02/08/17 06:05 02/08/17 06:05 02/08/17 06:05 02/08/17 06:05 02/08/17 06:05 Intake & Output 02/06/17 02/07/17 02/08/17 11:59 11:59 11:59 Weight 46.6 kg General appearance: PRESENT: no acute distress, cooperative, thin, other - Cachexia and temporal wasting with a BMI of 15 Head exam: PRESENT: atraumatic, normocephalic Eye exam: PRESENT: conjunctiva pink, EOMI, PERRLA. ABSENT: scleral icterus Ear exam: PRESENT: normal external ear exam Mouth exam: PRESENT: moist, tongue midline Neck exam: ABSENT: carotid bruit, JVD, lymphadenopathy, thyromegaly Respiratory exam: PRESENT: clear to auscultation tacho. ABSENT: rales, rhonchi, wheezes Cardiovascular exam: PRESENT: RRR. ABSENT: diastolic murmur, rubs, systolic murmur Pulses: PRESENT: normal dorsalis pedis pul Vascular exam: PRESENT: normal capillary refill GI/Abdominal exam: PRESENT: diminished bowel sounds, firm, mass - Left renal, tenderness. ABSENT: guarding, hyperactive bowel sounds, hypoactive bowel sounds Rectal exam: PRESENT: deferred Extremities exam: PRESENT: full ROM. ABSENT: calf tenderness, clubbing, pedal edema Neurological exam: PRESENT: alert, altered, awake, oriented to person, oriented to place, CN II-XII grossly intact Psychiatric exam: PRESENT: appropriate affect, normal mood. ABSENT: homicidal ideation, suicidal ideation Skin exam: PRESENT: dry, intact, warm. ABSENT: cyanosis, rash Results Laboratory Results: 02/08/17 03:48 02/08/17 02/08/17 02/08/17 03:48 03:48 03:48 Sodium 136.9 L Potassium 3.4 L Chloride 101 Carbon Dioxide 28 Anion Gap 8 BUN 23 H Creatinine 0.89 Est GFR ( Amer) > 60 Est GFR (Non-Af Amer) > 60 Glucose 96 Calcium 8.7 Phosphorus 4.5 Total Bilirubin 0.8 AST 73 H ALT 125 H Alkaline Phosphatase 98 Total Protein 5.8 L Albumin 3.3 L Vitamin B12 > 1000.0 H Folate > 20.00 TSH 1.43 Impressions: Chest X-Ray 02/07/17 19:29 IMPRESSION: COPD. NO ACUTE RADIOGRAPHIC FINDING IN THE CHEST. AGAIN NOTED IS A POSSIBLE NODULE WITHIN THE LEFT UPPER LOBE. FOLLOW-UP CHEST CT RECOMMENDED. Abdomen Ultrasound 02/07/17 22:22 IMPRESSION: Small perihepatic ascites. Else, no acute findings. Abdomen/Pelvis CT 02/08/17 00:00 IMPRESSION: 1. Nonspecific 0.9 cm ovoid filling defect in the posterior aspect of the right paracentral bladder on post excretion imaging relatively new compared with prior available exam, March 2012. Consider Urology consultation. 2. Cachexia. Limitation. Chest/Abdomen CTA 02/08/17 00:00 IMPRESSION: 1. Small focal sclerosis of the left 6th posterior rib consistent with recent radiographs and not present on prior radiographs from May 2014. Differential diagnosis includes metastatic disease. Consider further evaluation with whole-body bone scan. No acute cardiopulmonary findings. No evidence of pulmonary embolus. Assessment & Plan - Diagnosis (1) Elevated LFTs Is this a current diagnosis for this admission?: Yes Plan: Poor p.o. intake concurrent use of metformin with concern for starvation, hold metformin evaluate A1c and diet with reevaluation of LFTs. (2) Weight loss, unintentional Is this a current diagnosis for this admission?: Yes Plan: Concern for malignancy given cachexia with 30 pound weight loss in a month history of gastric, prostate cancers and 100 pack year history of smoking. Follow-up CT chest and abdomen. (3) Thrombocytopenia Is this a current diagnosis for this admission?: Yes Plan: Unclear cause reevaluate CBC consider hematology consult (4) Abdominal mass, left upper quadrant Is this a current diagnosis for this admission?: Yes Plan: Concern for malignancy given history follow-up CT abdomen. - Time Time Spent: 30 to 50 Minutes
[2017-02-08] MEDS ORDERED: NA PHOS,M-B/NA PHOS,DI-BA (ADULT) 133 ML ENEMA PR PRN (06:49)
--- NOTE | 2017-02-08 06:51 | ER Document Report ---
Sepsis - Sepsis Documentation Sepsis Patient: Yes - Vital Signs Vitals: Temp Pulse Resp BP Pulse Ox 97.7 F 78 19 130/92 H 100 02/08/17 06:05 02/08/17 06:35 02/08/17 06:05 02/08/17 06:05 02/08/17 06:05 Interpretation: Other - hypothermi - Cardiovascular Peripheral Pulse Strength: Normal Capillary refill: < 3 seconds Rhythm: Regular Heart Sounds: Normal auscultation, S1 appreciated, S2 appreciated - Respiratory Breath Sounds: Clear. negative: Rales, Rhonchi, Stridor, Wheezing, Decreased air movement Respiratory Status: Other - hypoventilation noted on initial exam - Skin Skin Color: Normal, Cyanotic - lips and nose Provider Note Provider Note: Given patients weight of 46.4kg, he required 1.3L of saline. He received an IV bolus of 1L, and approx. 350ml via IV abx with IV flushes. Lactic of 4.5 at 19: 45 with significant improvement of 1.8 at 23:30.
[2017-02-08] MEDS: DOCUSATE SODIUM 100 MG CAPSULE PO SCH ×2 (09:39→17:56)
[2017-02-08] MEDS: SERTRALINE HCL 50 MG TABLET PO SCH (09:39)
[2017-02-08] MEDS: FINASTERIDE 5 MG TABLET PO SCH (09:40)
[2017-02-08] MEDS: HEPARIN SOD (PORCINE) 5,000 UNIT/ML 1 ML SYRINGE SUBCUT SCH ×3 (09:51→21:27)
--- NOTE | 2017-02-08 10:07 | PDOC PROGRESS REPORT ---
Subjective Progress Note for:: 02/08/17 Subjective:: Patient reports still having early satiety. Physical Exam Vital Signs: Temp Pulse Resp BP Pulse Ox 97.7 F 82 16 134/47 H 100 02/08/17 08:00 02/08/17 08:00 02/08/17 08:00 02/08/17 08:00 02/08/17 08:00 Intake & Output 02/07/17 02/08/17 02/09/17 06:59 06:59 06:59 Weight 46.6 kg General appearance: PRESENT: no acute distress, thin Eye exam: PRESENT: conjunctiva pink. ABSENT: scleral icterus Mouth exam: PRESENT: moist, tongue midline Neck exam: ABSENT: JVD Respiratory exam: PRESENT: clear to auscultation tacho. ABSENT: rales, rhonchi, wheezes Cardiovascular exam: PRESENT: RRR. ABSENT: diastolic murmur, rubs, systolic murmur GI/Abdominal exam: PRESENT: normal bowel sounds, soft. ABSENT: distended, guarding, mass, organolmegaly, rebound, tenderness Extremities exam: ABSENT: calf tenderness, clubbing, pedal edema Neurological exam: PRESENT: alert, awake, oriented to person, oriented to place , oriented to time, oriented to situation, CN II-XII grossly intact. ABSENT: motor sensory deficit Psychiatric exam: PRESENT: appropriate affect Skin exam: PRESENT: dry, intact, warm. ABSENT: cyanosis, rash Results Laboratory Results: 02/08/17 03:48 02/08/17 02/08/17 02/08/17 03:48 03:48 03:48 Sodium 136.9 L Potassium 3.4 L Chloride 101 Carbon Dioxide 28 Anion Gap 8 BUN 23 H Creatinine 0.89 Est GFR ( Amer) > 60 Est GFR (Non-Af Amer) > 60 Glucose 96 Calcium 8.7 Phosphorus 4.5 Total Bilirubin 0.8 AST 73 H ALT 125 H Alkaline Phosphatase 98 Total Protein 5.8 L Albumin 3.3 L Vitamin B12 > 1000.0 H Folate > 20.00 TSH 1.43 Impressions: Chest X-Ray 02/07/17 19:29 IMPRESSION: COPD. NO ACUTE RADIOGRAPHIC FINDING IN THE CHEST. AGAIN NOTED IS A POSSIBLE NODULE WITHIN THE LEFT UPPER LOBE. FOLLOW-UP CHEST CT RECOMMENDED. Abdomen Ultrasound 02/07/17 22:22 IMPRESSION: Small perihepatic ascites. Else, no acute findings. Abdomen/Pelvis CT 02/08/17 00:00 IMPRESSION: 1. Nonspecific 0.9 cm ovoid filling defect in the posterior aspect of the right paracentral bladder on post excretion imaging relatively new compared with prior available exam, March 2012. Consider Urology consultation. 2. Cachexia. Limitation. Chest/Abdomen CTA 02/08/17 00:00 IMPRESSION: 1. Small focal sclerosis of the left 6th posterior rib consistent with recent radiographs and not present on prior radiographs from May 2014. Differential diagnosis includes metastatic disease. Consider further evaluation with whole-body bone scan. No acute cardiopulmonary findings. No evidence of pulmonary embolus. Assessment & Plan - Diagnosis (1) Elevated LFTs Is this a current diagnosis for this admission?: Yes Plan: Is not clear what the cause of the elevated liver enzymes. Possibly related to starvation. (2) Sepsis Qualifiers: Sepsis type: sepsis due to unspecified organism Qualified Code(s): A41.9 - Sepsis, unspecified organism Is this a current diagnosis for this admission?: No Plan: There was concern initially the patient may have sepsis given his clinical presentation. There does not appear to be sepsis present at this time. (3) Thrombocytopenia Is this a current diagnosis for this admission?: Yes Plan: Uncertain as to the cause for the thrombocytopenia. No evidence for active bleeding. The possibility of this patient having malignancy is considered given his history of gastric cancer and bladder mass. (4) Weight loss, unintentional Is this a current diagnosis for this admission?: Yes Plan: Is not clear whether this is malignancy related. He does have a history of gastric cancer but this was several years ago. There is a abnormality in the bladder. My suspicion is that it may be related to his vascular disease given that he had an abdominal aortic and a stent placed. Possibility of him having superior mesenteric artery stenosis is considered. We will plan on getting a arterial Doppler of mesenteric artery to evaluate. We will plan on getting on Friday given that it is the weekend and this is not an emergent procedure. Patient also has a bladder mass present on CT scan. Unclear as to whether this is significant or not. We do not have urology evaluation available today. We will continue the IV fluids for now and encourage him to eat more. He may need an EGD to evaluate the early satiety. - Time Time Spent with patient: 25-34 minutes - Inpatient Certification Medical Necessity: Need Close Monitoring Due to Risk of Patient Decompensation, Need For IV Fluids
[2017-02-09 04:52] LABS: ABSOLUTE BASOPHILS # (AUTO) 0.1 10^3/uL (0.0-0.2); ABSOLUTE EOSINOPHILS # (AUTO) 0.1 10^3/uL (0.0-0.6); ABSOLUTE LYMPHOCYTES (AUTO) 1.8 10^3/uL (0.5-4.7); ABSOLUTE MONOCYTES (AUTO) 0.4 10^3/uL (0.1-1.4); EOSINOPHILS % (AUTO) 1.2 % (0-6); HEMATOCRIT 27.7 % (37.9-51.0); HGB HCT DIFFERENCE 3.2; LYMPHOCYTES % (AUTO) 34.3 % (13-45); MEAN CORPUSCULAR HEMOGLOBIN 36.5 pg (27.0-33.4); MEAN CORPUSCULAR VOLUME 98 fl (80-97); MONOCYTES % (AUTO) 7.1 % (3-13); RED BLOOD COUNT 2.82 10^6/uL (4.35-5.55); RED CELL DISTRIBUTION WIDTH 14.9 % (11.5-14.0); SEGMENTED NEUTROPHILS % (AUTO) 56.4 % (42-78); WHITE BLOOD COUNT 5.3 10^3/uL (4.0-10.5)
[2017-02-09 05:11] LABS: ALANINE AMINOTRANSFERASE 115 U/L (21-72); ALKALINE PHOSPHATASE 82 U/L (38-126); ANION GAP 5 (5-19); ASPARTATE AMINO TRANSFERASE 65 U/L (17-59); BILIRUBIN,DIRECT 0.4 mg/dL (0.0-0.4); BILIRUBIN,TOTAL 0.8 mg/dL (0.2-1.3); BLOOD UREA NITROGEN 14 mg/dL (7-20); CALCIUM 8.6 mg/dL (8.4-10.2); CARBON DIOXIDE 26 mmol/L (22-30); CHLORIDE 102 mmol/L (98-107); CREATININE RESULT 0.71 mg/dL (0.52-1.25); GLUCOSE 78 mg/dL (75-110); POTASSIUM 3.3 mmol/L (3.6-5.0); SODIUM 132.6 mmol/L (137-145); TOTAL PROTEIN 5.2 g/dL (6.3-8.2)
[2017-02-09] MEDS: HEPARIN SOD (PORCINE) 5,000 UNIT/ML 1 ML SYRINGE SUBCUT SCH ×3 (05:54→21:21)
[2017-02-09 06:00] LABS: HEMOGLOBIN 10.3 g/dL (13.5-17.0)
[2017-02-09 06:02] LABS: MEAN CORPUSCULAR HGB CONC 37.1 g/dL (32.0-36.0)
[2017-02-09] MEDS: SERTRALINE HCL 50 MG TABLET PO SCH (07:38)
[2017-02-09] MEDS: FINASTERIDE 5 MG TABLET PO SCH (09:46)
[2017-02-09] MEDS: DOCUSATE SODIUM 100 MG CAPSULE PO SCH ×2 (09:47→17:16)
[2017-02-09] MEDS: POTASSIUM CHLORIDE 10 MEQ TABLET.SA PO SCH ×2 (09:47→21:39)
--- NOTE | 2017-02-09 10:28 | PDOC PROGRESS REPORT ---
Subjective Progress Note for:: 02/09/17 Subjective:: Patient denies any pain. He reports he does not have an appetite at this time. Physical Exam Vital Signs: Temp Pulse Resp BP Pulse Ox 97.7 F 90 16 116/82 99 02/09/17 07:51 02/09/17 07:51 02/09/17 07:51 02/09/17 07:51 02/09/17 07:51 Intake & Output 02/08/17 02/09/17 02/10/17 06:59 06:59 06:59 Intake Total 2590 Output Total 200 Balance 2390 Weight 46.6 kg 48 kg General appearance: PRESENT: no acute distress Eye exam: PRESENT: conjunctiva pink. ABSENT: scleral icterus Ear exam: PRESENT: normal external ear exam Neck exam: ABSENT: JVD Respiratory exam: PRESENT: clear to auscultation tacho. ABSENT: rales, rhonchi, wheezes Cardiovascular exam: PRESENT: RRR. ABSENT: diastolic murmur, rubs, systolic murmur GI/Abdominal exam: PRESENT: normal bowel sounds, soft. ABSENT: distended, guarding, mass, organolmegaly, rebound, tenderness Extremities exam: ABSENT: calf tenderness, clubbing, pedal edema Neurological exam: PRESENT: alert, awake, oriented to person, oriented to place , oriented to time, oriented to situation, CN II-XII grossly intact. ABSENT: motor sensory deficit Psychiatric exam: PRESENT: appropriate affect Skin exam: PRESENT: dry, intact, warm. ABSENT: cyanosis, rash Results Laboratory Results: 02/09/17 03:48 02/09/17 03:48 02/09/17 02/09/17 03:48 03:48 WBC 5.3 RBC 2.82 L Hgb 10.3 L D Hct 27.7 L MCV 98 H MCH 36.5 H MCHC 37.1 H RDW 14.9 H Plt Count 79 L Seg Neutrophils % 56.4 Lymphocytes % 34.3 Monocytes % 7.1 Eosinophils % 1.2 Basophils % 1.0 Absolute Neutrophils 3.0 Absolute Lymphocytes 1.8 Absolute Monocytes 0.4 Absolute Eosinophils 0.1 Absolute Basophils 0.1 Sodium 132.6 L Potassium 3.3 L Chloride 102 Carbon Dioxide 26 Anion Gap 5 BUN 14 Creatinine 0.71 Est GFR ( Amer) > 60 Est GFR (Non-Af Amer) > 60 Glucose 78 Calcium 8.6 Total Bilirubin 0.8 AST 65 H ALT 115 H Alkaline Phosphatase 82 Total Protein 5.2 L Albumin 3.0 L Impressions: Chest X-Ray 02/07/17 19:29 IMPRESSION: COPD. NO ACUTE RADIOGRAPHIC FINDING IN THE CHEST. AGAIN NOTED IS A POSSIBLE NODULE WITHIN THE LEFT UPPER LOBE. FOLLOW-UP CHEST CT RECOMMENDED. Abdomen Ultrasound 02/07/17 22:22 IMPRESSION: Small perihepatic ascites. Else, no acute findings. Abdomen/Pelvis CT 02/08/17 00:00 IMPRESSION: 1. Nonspecific 0.9 cm ovoid filling defect in the posterior aspect of the right paracentral bladder on post excretion imaging relatively new compared with prior available exam, March 2012. Consider Urology consultation. 2. Cachexia. Limitation. Chest/Abdomen CTA 02/08/17 00:00 IMPRESSION: 1. Small focal sclerosis of the left 6th posterior rib consistent with recent radiographs and not present on prior radiographs from May 2014. Differential diagnosis includes metastatic disease. Consider further evaluation with whole-body bone scan. No acute cardiopulmonary findings. No evidence of pulmonary embolus. Assessment & Plan - Diagnosis (1) Elevated LFTs Is this a current diagnosis for this admission?: Yes Plan: Is not clear what the cause of the elevated liver enzymes. Possibly related to starvation. (2) Sepsis Qualifiers: Sepsis type: sepsis due to unspecified organism Qualified Code(s): A41.9 - Sepsis, unspecified organism Is this a current diagnosis for this admission?: No Plan: There was concern initially the patient may have sepsis given his clinical presentation. There does not appear to be sepsis present at this time. (3) Thrombocytopenia Is this a current diagnosis for this admission?: Yes Plan: Uncertain as to the cause for the thrombocytopenia. No evidence for active bleeding. The possibility of this patient having malignancy is considered given his history of gastric cancer and bladder mass. (4) Weight loss, unintentional Is this a current diagnosis for this admission?: Yes Plan: Is not clear whether this is malignancy related. He does have a history of gastric cancer but this was several years ago. There is a abnormality in the bladder. My suspicion is that it may be related to his vascular disease given that he had an abdominal aortic aneurysm and a stent placed. Possibility of him having superior mesenteric artery stenosis is considered. We will plan on getting a arterial Doppler of mesenteric artery to evaluate. We will plan on getting on Friday given that it is the weekend and this is not an emergent procedure. Patient also has a bladder mass present on CT scan. Unclear as to whether this is significant or not. We do not have urology evaluation available today. We will continue the IV fluids for now and encourage him to eat more. He may need an EGD to evaluate the early satiety. (5) Anemia Is this a current diagnosis for this admission?: Yes Plan: Most likely secondary to hemodilution. We will continue to monitor. (6) Hypokalemia Is this a current diagnosis for this admission?: Yes Plan: Patient will be started on replacement and we will follow his potassium levels. - Time Time Spent with patient: 25-34 minutes - Inpatient Certification Medical Necessity: Need For IV Fluids
[2017-02-10] MEDS: NORMAL SALINE 1000 ML 1,000 ML IV PRN ×2 (00:33→22:59)
[2017-02-10 04:59] LABS: ABSOLUTE BASOPHILS # (AUTO) 0.1 10^3/uL (0.0-0.2); ABSOLUTE MONOCYTES (AUTO) 0.4 10^3/uL (0.1-1.4)
[2017-02-10 05:02] LABS: BLOOD UREA NITROGEN 10 mg/dL (7-20); CALCIUM 8.5 mg/dL (8.4-10.2); CHLORIDE 105 mmol/L (98-107); CREATININE RESULT 0.66 mg/dL (0.52-1.25); GLUCOSE 76 mg/dL (75-110); POTASSIUM 3.5 mmol/L (3.6-5.0)
[2017-02-10 05:08] LABS: ABSOLUTE EOSINOPHILS # (AUTO) 0.1 10^3/uL (0.0-0.6); ABSOLUTE NEUT (AUTO) 2.8 10^3/uL (1.7-8.2); BASOPHILS % (AUTO) 1.3 % (0-2); EOSINOPHILS % (AUTO) 0.9 % (0-6); HEMATOCRIT 29.8 % (37.9-51.0); HEMOGLOBIN 11.1 g/dL (13.5-17.0); HGB HCT DIFFERENCE 3.5; LYMPHOCYTES % (AUTO) 37.1 % (13-45); MEAN CORPUSCULAR HGB CONC 37.2 g/dL (32.0-36.0); MEAN CORPUSCULAR VOLUME 97 fl (80-97); MONOCYTES % (AUTO) 8.2 % (3-13); RED BLOOD COUNT 3.08 10^6/uL (4.35-5.55); RED CELL DISTRIBUTION WIDTH 15.1 % (11.5-14.0); SEGMENTED NEUTROPHILS % (AUTO) 52.5 % (42-78); WHITE BLOOD COUNT 5.3 10^3/uL (4.0-10.5)
[2017-02-10 05:12] LABS: CARBON DIOXIDE 26 mmol/L (22-30); SODIUM 134.7 mmol/L (137-145)
[2017-02-10 05:35] LABS: ANION GAP 4 (5-19)
[2017-02-10] MEDS: HEPARIN SOD (PORCINE) 5,000 UNIT/ML 1 ML SYRINGE SUBCUT SCH ×3 (06:16→21:23)
[2017-02-10] MEDS: SERTRALINE HCL 50 MG TABLET PO SCH (07:34)
[2017-02-10] MEDS ORDERED: TRAMADOL HCL 50 MG TABLET PO PRN (09:00)
[2017-02-10] MEDS: FINASTERIDE 5 MG TABLET PO SCH (09:29)
[2017-02-10] MEDS: DOCUSATE SODIUM 100 MG CAPSULE PO SCH ×2 (09:29→17:17)
[2017-02-10] MEDS: POTASSIUM CHLORIDE 10 MEQ TABLET.SA PO SCH ×2 (09:29→21:53)
--- NOTE | 2017-02-10 11:49 | RADIOLOGY REPORT (SQ) ---
EXAM DESCRIPTION: U/S LTD DUPLEX ART/ANTONETTE FLOW COMPLETED DATE/TIME: 02/10/2017 11:12 am REASON FOR STUDY: eval for SMA stenosis COMPARISON: None. TECHNIQUE: Realtime and static grayscale images acquired. Selected color Doppler, velocities and spe ctral images recorded. LIMITATIONS: None. FINDINGS: Waveforms and flow velocities within normal limits in the celiac, SMA and MARK. IMPRESSION: No evidence of mesenteric arterial stenosis. TECHNICAL DOCUMENTATION: JOB ID: [id number] [email or web address]- All Rights Reserved
--- NOTE | 2017-02-10 13:16 | PDOC PROGRESS REPORT ---
Subjective Progress Note for:: 02/10/17 Subjective:: Patient denies any pain. He reports he does not have an appetite at this time. Physical Exam Vital Signs: Temp Pulse Resp BP Pulse Ox 97.7 F 78 18 120/77 100 02/10/17 11:33 02/10/17 11:33 02/10/17 11:33 02/10/17 11:33 02/10/17 11:33 Intake & Output 02/09/17 02/10/17 02/11/17 06:59 06:59 06:59 Intake Total 2590 3349 Output Total 200 Balance 2390 3349 Weight 48 kg 46.4 kg General appearance: PRESENT: no acute distress Eye exam: PRESENT: conjunctiva pink. ABSENT: scleral icterus Ear exam: PRESENT: normal external ear exam Mouth exam: PRESENT: moist, tongue midline Neck exam: ABSENT: JVD Respiratory exam: PRESENT: clear to auscultation tacho. ABSENT: rales, rhonchi, wheezes Cardiovascular exam: PRESENT: RRR. ABSENT: diastolic murmur, rubs, systolic murmur GI/Abdominal exam: PRESENT: normal bowel sounds, soft. ABSENT: distended, guarding, mass, organolmegaly, rebound, tenderness Extremities exam: ABSENT: calf tenderness, clubbing, pedal edema Neurological exam: PRESENT: alert, awake, oriented to person, oriented to place , oriented to time, oriented to situation, CN II-XII grossly intact. ABSENT: motor sensory deficit Psychiatric exam: PRESENT: appropriate affect Skin exam: PRESENT: dry, intact, warm. ABSENT: cyanosis, rash Results Laboratory Results: 02/10/17 03:41 02/10/17 03:41 02/10/17 02/10/17 03:41 03:41 WBC 5.3 RBC 3.08 L Hgb 11.1 L Hct 29.8 L MCV 97 MCH 36.0 H MCHC 37.2 H RDW 15.1 H Plt Count 68 L Seg Neutrophils % 52.5 Lymphocytes % 37.1 Monocytes % 8.2 Eosinophils % 0.9 Basophils % 1.3 Absolute Neutrophils 2.8 Absolute Lymphocytes 2.0 Absolute Monocytes 0.4 Absolute Eosinophils 0.1 Absolute Basophils 0.1 Sodium 134.7 L Potassium 3.5 L Chloride 105 Carbon Dioxide 26 Anion Gap 4 L BUN 10 Creatinine 0.66 Est GFR ( Amer) > 60 Est GFR (Non-Af Amer) > 60 Glucose 76 Calcium 8.5 Impressions: Chest X-Ray 02/07/17 19:29 IMPRESSION: COPD. NO ACUTE RADIOGRAPHIC FINDING IN THE CHEST. AGAIN NOTED IS A POSSIBLE NODULE WITHIN THE LEFT UPPER LOBE. FOLLOW-UP CHEST CT RECOMMENDED. Abdomen Ultrasound 02/07/17 22:22 IMPRESSION: Small perihepatic ascites. Else, no acute findings. Abdomen/Pelvis CT 02/08/17 00:00 IMPRESSION: 1. Nonspecific 0.9 cm ovoid filling defect in the posterior aspect of the right paracentral bladder on post excretion imaging relatively new compared with prior available exam, March 2012. Consider Urology consultation. 2. Cachexia. Limitation. Chest/Abdomen CTA 02/08/17 00:00 IMPRESSION: 1. Small focal sclerosis of the left 6th posterior rib consistent with recent radiographs and not present on prior radiographs from May 2014. Differential diagnosis includes metastatic disease. Consider further evaluation with whole-body bone scan. No acute cardiopulmonary findings. No evidence of pulmonary embolus. Vascular Ultrasound 02/10/17 00:00 IMPRESSION: No evidence of mesenteric arterial stenosis. Assessment & Plan - Diagnosis (1) Elevated LFTs Is this a current diagnosis for this admission?: Yes Plan: Is not clear what the cause of the elevated liver enzymes. Possibly related to starvation. (2) Sepsis Qualifiers: Sepsis type: sepsis due to unspecified organism Qualified Code(s): A41.9 - Sepsis, unspecified organism Is this a current diagnosis for this admission?: No Plan: There was concern initially the patient may have sepsis given his clinical presentation. There does not appear to be sepsis present at this time. (3) Thrombocytopenia Is this a current diagnosis for this admission?: Yes Plan: Uncertain as to the cause for the thrombocytopenia. No evidence for active bleeding. The possibility of this patient having malignancy is considered given his history of gastric cancer and bladder mass. (4) Weight loss, unintentional Is this a current diagnosis for this admission?: Yes Plan: Is not clear whether this is malignancy related. He does have a history of gastric cancer but this was several years ago. There is a abnormality in the bladder. I initially thought that this may be related to vascular stenosis of the superior mesenteric artery. Doppler today shows no evidence for stenosis. Patient also has a bladder mass present on CT scan. Unclear as to whether this is significant or not. We do not have urology evaluation available today. We will continue the IV fluids for now and encourage him to eat more. Will ask GI to perform an EGD given his history of gastric cancer and early satiety. (5) Anemia Is this a current diagnosis for this admission?: Yes Plan: Most likely secondary to hemodilution. We will continue to monitor. (6) Hypokalemia Is this a current diagnosis for this admission?: Yes Plan: Patient will be continued on replacement and we will follow his potassium levels. - Time Time Spent with patient: 25-34 minutes - Inpatient Certification Medical Necessity: Need Close Monitoring Due to Risk of Patient Decompensation, Need For IV Fluids
[2017-02-10] MEDS ORDERED: GLUCAGON,HUMAN RECOMB 1 MG INJ SUBCUT PRN (17:25)
[2017-02-10] MEDS ORDERED: DEXTROSE 50%-WATER 25 GM/50 ML DISP.SYRIN IV PRN ×2 (17:25)
[2017-02-10] MEDS ORDERED: DEXTROSE 40% GEL 15 GM TUBE PO PRN ×2 (17:25)
[2017-02-11] MEDS: HEPARIN SOD (PORCINE) 5,000 UNIT/ML 1 ML SYRINGE SUBCUT SCH ×2 (04:58→13:54)
[2017-02-11 06:00] LABS: ANION GAP 6 (5-19); BLOOD UREA NITROGEN 10 mg/dL (7-20); CALCIUM 8.3 mg/dL (8.4-10.2); CARBON DIOXIDE 24 mmol/L (22-30); CHLORIDE 103 mmol/L (98-107); CREATININE RESULT 0.65 mg/dL (0.52-1.25); GLUCOSE 68 mg/dL (75-110); POTASSIUM 3.4 mmol/L (3.6-5.0); SODIUM 133.2 mmol/L (137-145)
[2017-02-11 06:06] LABS: ABSOLUTE BASOPHILS # (AUTO) 0.1 10^3/uL (0.0-0.2); ABSOLUTE LYMPHOCYTES (AUTO) 1.9 10^3/uL (0.5-4.7); ABSOLUTE MONOCYTES (AUTO) 0.4 10^3/uL (0.1-1.4); ABSOLUTE NEUT (AUTO) 3.1 10^3/uL (1.7-8.2); BASOPHILS % (AUTO) 1.3 % (0-2); EOSINOPHILS % (AUTO) 0.7 % (0-6); HEMATOCRIT 28.1 % (37.9-51.0); HEMOGLOBIN 10.6 g/dL (13.5-17.0); HGB HCT DIFFERENCE 3.7; MEAN CORPUSCULAR HEMOGLOBIN 36.5 pg (27.0-33.4); MEAN CORPUSCULAR VOLUME 97 fl (80-97); MONOCYTES % (AUTO) 7.8 % (3-13); RED CELL DISTRIBUTION WIDTH 14.6 % (11.5-14.0); SEGMENTED NEUTROPHILS % (AUTO) 56.2 % (42-78); WHITE BLOOD COUNT 5.5 10^3/uL (4.0-10.5)
[2017-02-11 06:45] LABS: MEAN CORPUSCULAR HGB CONC 37.7 g/dL (32.0-36.0)
[2017-02-11] MEDS: NORMAL SALINE 1000 ML 1,000 ML IV PRN (07:42)
[2017-02-11] MEDS: SERTRALINE HCL 50 MG TABLET PO SCH (07:43)
[2017-02-11] MEDS ORDERED: NALOXONE HCL INJ/PF 0.4 MG/1 ML SDV ONE (11:32)
[2017-02-11] MEDS ORDERED: DIPHENHYDRAMINE HCL 50 MG/ML VIAL ONE (11:32)
[2017-02-11] MEDS ORDERED: ONDANSETRON HCL INJ/PF 4 MG/2 ML SDV ONE (11:32)
[2017-02-11] MEDS ORDERED: FENTANYL CITRATE INJ/PF 100 MCG/2 ML AMPUL ONE ×2 (11:33→11:34)
[2017-02-11] MEDS ORDERED: MIDAZOLAM 2 MG/2 ML INJ ONE (11:33)
[2017-02-11] MEDS ORDERED: EPINEPHRINE INJ 1 MG/10 ML DISP.SYRIN ONE (11:34)
[2017-02-11] MEDS ORDERED: FLUMAZENIL INJ 0.5 MG/5 ML VIAL ONE (11:34)
[2017-02-11] MEDS ORDERED: GLUCAGON,HUMAN RECOMB 1 MG INJ ONE (11:34)
[2017-02-11] MEDS: MIDAZOLAM 2 MG/2 ML INJ ONE ×2 (12:15→12:17)
--- NOTE | 2017-02-11 12:52 | Operative Report ---
Operative Report DATE OF SURGERY: 02/11/17 Operative Report: The risks benefits and alternatives of the procedure explained to the patient in detail and informed consent is obtained.A GIF Olympus video scope was inserted into the patient's mouth and hypopharynx ,the esophagus is identified intubated and insufflated, the scope was then advanced through the esophagus stomach and duodenum ,retroflexion maneuver is done the esophagus stomach and first and second portions of the duodenum examined PREOPERATIVE DIAGNOSIS: History of possible esophageal resection along with primary anastomosis. Weight loss. 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 Anastomosis does not appear to be strictured. Stomach remnant does appear irritated and there is gastritis; biopsies obtained. Duodenal bulb and first portion of duodenum do appear to be normal. OPERATION: EGD with biopsy SURGEON: REBEKAH REYNOSO ANESTHESIA: Moderate Sedation - 2 mg of Versed. Conscious sedation monitoring time 30 minutes. TISSUE REMOVED OR ALTERED: Gastritis status post biopsy rule out Helicobacter pylori. Esophageal biopsy as noted above COMPLICATIONS: None. ESTIMATED BLOOD LOSS: None. INTRAOPERATIVE FINDINGS: As described above. PROCEDURE: Patient tolerated procedure well. No immediate postprocedure complications are noted. Patient sent back to his room in good condition. Resume previous diet as tolerated. We will wait on biopsies. Further recommendations to follow. Case discussed with Dr. Carrillo
--- NOTE | 2017-02-11 13:08 | PDOC CONSULTATION ---
Consultation Consult Date: 02/10/17 Attending physician:: REBEKAH REYNOSO Consult reason:: weight loss , anorexia. 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 patient had a resection with primary anastomosis son provides history that father had been having long history of GERD patient also had colonoscopy done about 2 years ago, was told that he had polyps and for some reason needed frequent exams denies any blood in his stools patient denies any dysphagia or odynophagia there is some early satiety there is no regurgitation noted patient denies any melena Past Medical History Cardiac Medical History: Denies: Myocardial Infarction, Hypertension Pulmonary Medical History: Denies: Asthma Neurological Medical History: Denies: Seizures Endocrine Medical History: Reports: Diabetes Mellitus Type 2 GI Medical History: Reports: Gastroesophageal Reflux Disease Denies: Hepatitis, Hiatal Hernia Psychiatric Medical History: Reports: Tobacco Dependency Hematology: Reports: Anemia Denies: Sickle Cell Disease Past Surgical History Past Surgical History: Reports: Pacemaker Social History Lives with: Spouse/Significant other Smoking Status: Current Every Day Smoker Cigarettes Packs Per Day: 2 Number of Years Smokin Frequency of Alcohol Use: None Hx Recreational Drug Use: No Drugs: None Hx Prescription Drug Abuse: No - Advance Directive Resuscitation Status: Full Code Family History Family History: Hypertension Parental Family History Reviewed: Yes Children Family History Reviewed: Unknown Sibling(s) Family History Reviewed.: Unknown Medication/Allergy Home Medications: Calcium Carbonate [Calcium] 500 mg PO DAILY 02/08/17 Cholecalciferol (Vitamin D3) [Vitamin D3 2000 unit Tablet] 2,000 unit PO DAILY 02/08/17 Ferrous Sulfate [Ferosul] 325 mg PO DAILY 02/08/17 Omeprazole 40 mg PO DAILYP PRN 02/08/17 Sertraline HCl [Zoloft] 200 mg PO DAILYP PRN 02/08/17 Tramadol HCl [Ultram 50 mg Tablet] 50 mg PO DAILYP PRN 02/08/17 Trazodone HCl [Desyrel 50 mg Tablet] 50 mg PO HSP PRN 02/08/17 Allergies/Adverse Reactions: No Known Allergies Allergy (Verified 02/07/17 19:14) Review of Systems Constitutional: ABSENT: fever(s), headache(s), night sweats, weakness Eyes: ABSENT: visual disturbances Ears: ABSENT: hearing changes Cardiovascular: ABSENT: chest pain, orthropnea, palpitations Respiratory: ABSENT: dyspnea, hemoptysis Gastrointestinal: PRESENT: heartburn. ABSENT: diarrhea, dysphagia, melena Genitourinary: ABSENT: dysuria, hematuria Musculoskeletal: ABSENT: deformity, joint swelling Integumentary: ABSENT: pruritus Neurological: ABSENT: syncope, tingling, tremor(s), vertigo Endocrine: ABSENT: polydipsia, polyphagia, polyuria Hematologic/Lymphatic: ABSENT: easy bruising Physical Exam Vital Signs: Temp Pulse Resp BP Pulse Ox 98.2 F 70 10 L 140/89 H 99 02/11/17 11:45 02/11/17 12:45 02/11/17 12:45 02/11/17 12:45 02/11/17 12:45 Intake & Output 02/10/17 02/11/17 02/12/17 06:59 06:59 06:59 Intake Total 3349 4324 550 Balance 3349 4324 550 Weight 46.4 kg 48.7 kg General appearance: ABSENT: no acute distress Head exam: ABSENT: atraumatic, normocephalic Eye exam: PRESENT: EOMI, PERRLA. ABSENT: nystagmus, periorbital swelling, scleral icterus Mouth exam: PRESENT: moist, neck supple Throat exam: ABSENT: tonsillar exudate, tonsillogmegaly Neck exam: ABSENT: meningismus, tenderness, thyromegaly Respiratory exam: PRESENT: symmetrical, unlabored. ABSENT: tachypnea, wheezes Cardiovascular exam: PRESENT: RRR, +S1, +S2 GI/Abdominal exam: PRESENT: soft. ABSENT: rebound, rigid, tenderness Extremities exam: ABSENT: joint swelling Musculoskeletal exam: PRESENT: full ROM Neurological exam: PRESENT: oriented to time, oriented to situation, reflexes normal, CN II-XII grossly intact Psychiatric exam: PRESENT: appropriate affect Skin exam: PRESENT: normal color. ABSENT: mottled, pallor, petechiae, urticaria , vesicles Results Laboratory Results: 02/11/17 04:15 02/11/17 04:15 02/11/17 02/11/17 04:15 04:15 WBC 5.5 RBC 2.90 L Hgb 10.6 L Hct 28.1 L MCV 97 MCH 36.5 H MCHC 37.7 H RDW 14.6 H Plt Count 94 L Seg Neutrophils % 56.2 Lymphocytes % 34.0 Monocytes % 7.8 Eosinophils % 0.7 Basophils % 1.3 Absolute Neutrophils 3.1 Absolute Lymphocytes 1.9 Absolute Monocytes 0.4 Absolute Eosinophils 0.0 Absolute Basophils 0.1 Sodium 133.2 L Potassium 3.4 L Chloride 103 Carbon Dioxide 24 Anion Gap 6 BUN 10 Creatinine 0.65 Est GFR ( Amer) > 60 Est GFR (Non-Af Amer) > 60 Glucose 68 L Calcium 8.3 L Impressions: Chest X-Ray 02/07/17 19:29 IMPRESSION: COPD. NO ACUTE RADIOGRAPHIC FINDING IN THE CHEST. AGAIN NOTED IS A POSSIBLE NODULE WITHIN THE LEFT UPPER LOBE. FOLLOW-UP CHEST CT RECOMMENDED. Abdomen Ultrasound 02/07/17 22:22 IMPRESSION: Small perihepatic ascites. Else, no acute findings. Abdomen/Pelvis CT 02/08/17 00:00 IMPRESSION: 1. Nonspecific 0.9 cm ovoid filling defect in the posterior aspect of the right paracentral bladder on post excretion imaging relatively new compared with prior available exam, March 2012. Consider Urology consultation. 2. Cachexia. Limitation. Chest/Abdomen CTA 02/08/17 00:00 IMPRESSION: 1. Small focal sclerosis of the left 6th posterior rib consistent with recent radiographs and not present on prior radiographs from May 2014. Differential diagnosis includes metastatic disease. Consider further evaluation with whole-body bone scan. No acute cardiopulmonary findings. No evidence of pulmonary embolus. Vascular Ultrasound 02/10/17 00:00 IMPRESSION: No evidence of mesenteric arterial stenosis. Assessment & Plan - Diagnosis (1) Anemia Is this a current diagnosis for this admission?: Yes Plan: continue to monitor for now could be due to potential blood loss although there is no obvious GI bleeding noted (2) Elevated LFTs Is this a current diagnosis for this admission?: Yes Plan: elevation in the AST and ALT, may not be liver in origin,may be relate to fatty liver no obstructive jaundice is noted to suggest CBD issue (3) Weight loss, unintentional Is this a current diagnosis for this admission?: Yes Plan: multiple factorial with a history of previous esophago- gastric junction resection, it appears that there could be a recurrence given the weight loss will need EGD I do suspect that with his long history of GERD, 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
[2017-02-11] MEDS: FINASTERIDE 5 MG TABLET PO SCH (14:09)
[2017-02-11] MEDS: POTASSIUM CHLORIDE 10 MEQ TABLET.SA PO SCH ×2 (14:09→22:07)
[2017-02-11] MEDS: DOCUSATE SODIUM 100 MG CAPSULE PO SCH ×2 (14:10→18:08)
--- NOTE | 2017-02-11 16:44 | PDOC PROGRESS REPORT ---
Subjective Progress Note for:: 02/11/17 Subjective:: Patient denies any pain. He reports he does not have an appetite at this time. Physical Exam Vital Signs: Temp Pulse Resp BP Pulse Ox 98.2 F 70 10 L 140/89 H 99 02/11/17 11:45 02/11/17 12:45 02/11/17 12:45 02/11/17 12:45 02/11/17 12:45 Intake & Output 02/10/17 02/11/17 02/12/17 06:59 06:59 06:59 Intake Total 3349 4324 550 Balance 3349 4324 550 Weight 46.4 kg 48.7 kg General appearance: PRESENT: no acute distress Eye exam: PRESENT: conjunctiva pink. ABSENT: scleral icterus Mouth exam: PRESENT: moist, tongue midline Neck exam: ABSENT: JVD Respiratory exam: PRESENT: clear to auscultation tacho. ABSENT: rales, rhonchi, wheezes Cardiovascular exam: PRESENT: RRR. ABSENT: diastolic murmur, rubs, systolic murmur GI/Abdominal exam: PRESENT: normal bowel sounds, soft. ABSENT: distended, guarding, mass, organolmegaly, rebound, tenderness Extremities exam: ABSENT: calf tenderness, clubbing, pedal edema Neurological exam: PRESENT: alert, awake, oriented to person, oriented to place , oriented to time, oriented to situation, CN II-XII grossly intact. ABSENT: motor sensory deficit Psychiatric exam: PRESENT: appropriate affect Skin exam: PRESENT: dry, intact, warm. ABSENT: cyanosis, rash Results Laboratory Results: 02/11/17 04:15 02/11/17 04:15 02/11/17 02/11/17 04:15 04:15 WBC 5.5 RBC 2.90 L Hgb 10.6 L Hct 28.1 L MCV 97 MCH 36.5 H MCHC 37.7 H RDW 14.6 H Plt Count 94 L Seg Neutrophils % 56.2 Lymphocytes % 34.0 Monocytes % 7.8 Eosinophils % 0.7 Basophils % 1.3 Absolute Neutrophils 3.1 Absolute Lymphocytes 1.9 Absolute Monocytes 0.4 Absolute Eosinophils 0.0 Absolute Basophils 0.1 Sodium 133.2 L Potassium 3.4 L Chloride 103 Carbon Dioxide 24 Anion Gap 6 BUN 10 Creatinine 0.65 Est GFR ( Amer) > 60 Est GFR (Non-Af Amer) > 60 Glucose 68 L Calcium 8.3 L Impressions: Chest X-Ray 02/07/17 19:29 IMPRESSION: COPD. NO ACUTE RADIOGRAPHIC FINDING IN THE CHEST. AGAIN NOTED IS A POSSIBLE NODULE WITHIN THE LEFT UPPER LOBE. FOLLOW-UP CHEST CT RECOMMENDED. Abdomen Ultrasound 02/07/17 22:22 IMPRESSION: Small perihepatic ascites. Else, no acute findings. Abdomen/Pelvis CT 02/08/17 00:00 IMPRESSION: 1. Nonspecific 0.9 cm ovoid filling defect in the posterior aspect of the right paracentral bladder on post excretion imaging relatively new compared with prior available exam, March 2012. Consider Urology consultation. 2. Cachexia. Limitation. Chest/Abdomen CTA 02/08/17 00:00 IMPRESSION: 1. Small focal sclerosis of the left 6th posterior rib consistent with recent radiographs and not present on prior radiographs from May 2014. Differential diagnosis includes metastatic disease. Consider further evaluation with whole-body bone scan. No acute cardiopulmonary findings. No evidence of pulmonary embolus. Vascular Ultrasound 02/10/17 00:00 IMPRESSION: No evidence of mesenteric arterial stenosis. Assessment & Plan - Diagnosis (1) Elevated LFTs Is this a current diagnosis for this admission?: Yes Plan: Is not clear what the cause of the elevated liver enzymes. Possibly related to starvation. (2) Sepsis Qualifiers: Sepsis type: sepsis due to unspecified organism Qualified Code(s): A41.9 - Sepsis, unspecified organism Is this a current diagnosis for this admission?: No Plan: There was concern initially the patient may have sepsis given his clinical presentation. There does not appear to be sepsis present at this time. (3) Thrombocytopenia Is this a current diagnosis for this admission?: Yes Plan: Uncertain as to the cause for the thrombocytopenia. No evidence for active bleeding. The possibility of this patient having malignancy is considered given his history of gastric cancer and bladder mass. (4) Weight loss, unintentional Is this a current diagnosis for this admission?: Yes Plan: Is not clear whether this is malignancy related. He does have a history of gastric cancer but this was several years ago. There is a abnormality in the bladder. I initially thought that this may be related to vascular stenosis of the superior mesenteric artery. Doppler shows no evidence for stenosis. Patient also has a bladder mass present on CT scan. Unclear as to whether this is significant or not. He had an EGD today that showed some gastritis. Will start on Prilosec. He would need a colonoscopy which can be done as outpatient. He also will need outpatient urological evaluation. He is encouraged to eat more Ensure at home. Will watch overnight he does well we will discharge home tomorrow. (5) Anemia Is this a current diagnosis for this admission?: Yes Plan: Most likely secondary to hemodilution. We will continue to monitor. (6) Hypokalemia Is this a current diagnosis for this admission?: Yes Plan: Patient will be continued on replacement and we will follow his potassium levels. - Time Time Spent with patient: 25-34 minutes - Plan Summary Plan Summary: If he does well overnight we will plan on discharging home tomorrow.
[2017-02-11] MEDS ORDERED: LANSOPRAZOLE 15 MG TAB.RAP.DR PO ONE (17:30)
[2017-02-12] MEDS ORDERED: LANSOPRAZOLE 15 MG TAB.RAP.DR PO SCH (06:00)
[2017-02-12 06:15] LABS: ANION GAP 6 (5-19); BLOOD UREA NITROGEN 16 mg/dL (7-20); CALCIUM 8.6 mg/dL (8.4-10.2); CARBON DIOXIDE 25 mmol/L (22-30); CHLORIDE 100 mmol/L (98-107); CREATININE RESULT 0.82 mg/dL (0.52-1.25); GLUCOSE 62 mg/dL (75-110); POTASSIUM 3.8 mmol/L (3.6-5.0); SODIUM 131.2 mmol/L (137-145)
[2017-02-12 08:10] VITALS: BP 137/85
--- NOTE | 2017-02-12 08:32 | PDOC PROGRESS REPORT ---
Subjective Progress Note for:: 02/12/17 Subjective:: patient underwent EGD yesterday. tolerated procedure well patient has some weight loss no significant overnight events patient does have a history of polyps in discussion with family yesterday, it was felt that a colonoscopy could be done as an outpatient he does have a history of polyps if he is able to tolerate a diet today, the plan was to discharge him he can have outpatient colonoscopy as per the family however I did make them aware that because the [facility] , that his procedure may be significantly delayed they are willing to proceed with that plan Physical Exam Vital Signs: Temp Pulse Resp BP Pulse Ox 97.9 F 70 16 137/85 H 100 02/12/17 08:00 02/12/17 08:00 02/12/17 08:00 02/12/17 08:00 02/12/17 08:00 Intake & Output 02/11/17 02/12/17 02/13/17 06:59 06:59 06:59 Intake Total 4324 1450 Balance 4324 1450 Weight 48.7 kg 46.3 kg General appearance: PRESENT: no acute distress, thin Head exam: PRESENT: atraumatic, normocephalic Eye exam: PRESENT: EOMI, PERRLA. ABSENT: nystagmus, periorbital swelling, scleral icterus Mouth exam: PRESENT: neck supple Throat exam: ABSENT: tonsillar exudate, tonsillogmegaly Neck exam: ABSENT: JVD, meningismus, tenderness, thyromegaly Respiratory exam: PRESENT: symmetrical, unlabored. ABSENT: tachypnea, wheezes Cardiovascular exam: PRESENT: RRR, +S1, +S2 GI/Abdominal exam: PRESENT: soft. ABSENT: rebound, rigid, tenderness Extremities exam: ABSENT: joint swelling Musculoskeletal exam: PRESENT: full ROM Neurological exam: PRESENT: oriented to time, oriented to situation, reflexes normal, CN II-XII grossly intact Psychiatric exam: PRESENT: appropriate affect Skin exam: PRESENT: normal color. ABSENT: cyanosis, mottled, pallor, petechiae , urticaria, vesicles Results Laboratory Results: 02/12/17 04:21 02/12/17 04:21 02/12/17 02/12/17 04:21 04:21 WBC Cancelled RBC Cancelled Hgb Cancelled Hct Cancelled MCV Cancelled MCH Cancelled MCHC Cancelled RDW Cancelled Plt Count Cancelled Seg Neutrophils % Cancelled Lymphocytes % Cancelled Monocytes % Cancelled Eosinophils % Cancelled Basophils % Cancelled Absolute Neutrophils Cancelled Absolute Lymphocytes Cancelled Absolute Monocytes Cancelled Absolute Eosinophils Cancelled Absolute Basophils Cancelled Sodium 131.2 L Potassium 3.8 Chloride 100 Carbon Dioxide 25 Anion Gap 6 BUN 16 Creatinine 0.82 Est GFR ( Amer) > 60 Est GFR (Non-Af Amer) > 60 Glucose 62 L Calcium 8.6 Impressions: Chest X-Ray 02/07/17 19:29 IMPRESSION: COPD. NO ACUTE RADIOGRAPHIC FINDING IN THE CHEST. AGAIN NOTED IS A POSSIBLE NODULE WITHIN THE LEFT UPPER LOBE. FOLLOW-UP CHEST CT RECOMMENDED. Abdomen Ultrasound 02/07/17 22:22 IMPRESSION: Small perihepatic ascites. Else, no acute findings. Abdomen/Pelvis CT 02/08/17 00:00 IMPRESSION: 1. Nonspecific 0.9 cm ovoid filling defect in the posterior aspect of the right paracentral bladder on post excretion imaging relatively new compared with prior available exam, March 2012. Consider Urology consultation. 2. Cachexia. Limitation. Chest/Abdomen CTA 02/08/17 00:00 IMPRESSION: 1. Small focal sclerosis of the left 6th posterior rib consistent with recent radiographs and not present on prior radiographs from May 2014. Differential diagnosis includes metastatic disease. Consider further evaluation with whole-body bone scan. No acute cardiopulmonary findings. No evidence of pulmonary embolus. Vascular Ultrasound 02/10/17 00:00 IMPRESSION: No evidence of mesenteric arterial stenosis. Assessment & Plan - Diagnosis (1) Anemia Is this a current diagnosis for this admission?: Yes Plan: continue to follow follow up with Urology as an outpatient (2) Elevated LFTs Is this a current diagnosis for this admission?: Yes (3) Weight loss, unintentional Is this a current diagnosis for this admission?: Yes Plan: likely will need colonoscopy due to a history of polyps outpatient work up with Urology will wait on biopsies to make sure no recurrence of possible christine's (4) Colon polyps Plan: due for a surveillance, option was provided to the patient and family to perform in house.
[2017-02-12] MEDS: SERTRALINE HCL 50 MG TABLET PO SCH (08:39)
[2017-02-12 09:21] LABS: ABSOLUTE BASOPHILS # (AUTO) 0.1 10^3/uL (0.0-0.2); ABSOLUTE LYMPHOCYTES (AUTO) 1.8 10^3/uL (0.5-4.7); ABSOLUTE MONOCYTES (AUTO) 0.4 10^3/uL (0.1-1.4); ABSOLUTE NEUT (AUTO) 3.3 10^3/uL (1.7-8.2); BASOPHILS % (AUTO) 0.9 % (0-2); EOSINOPHILS % (AUTO) 0.7 % (0-6); HEMATOCRIT 29.9 % (37.9-51.0); HEMOGLOBIN 11.3 g/dL (13.5-17.0); LYMPHOCYTES % (AUTO) 31.3 % (13-45); MEAN CORPUSCULAR HEMOGLOBIN 36.4 pg (27.0-33.4); MEAN CORPUSCULAR HGB CONC 37.7 g/dL (32.0-36.0); MEAN CORPUSCULAR VOLUME 97 fl (80-97); MONOCYTES % (AUTO) 7.1 % (3-13); RED CELL DISTRIBUTION WIDTH 15.1 % (11.5-14.0); WHITE BLOOD COUNT 5.6 10^3/uL (4.0-10.5)
[2017-02-12] MEDS: DOCUSATE SODIUM 100 MG CAPSULE PO SCH (09:48)
[2017-02-12] MEDS: POTASSIUM CHLORIDE 10 MEQ TABLET.SA PO SCH (09:48)
[2017-02-12] MEDS: FINASTERIDE 5 MG TABLET PO SCH (09:48)
--- NOTE | 2017-02-12 10:21 | PDOC DISCHARGE SUMMARY ---
General - Admit/Disc Date/PCP Admission Date/Primary Care Provider: 02/08/17 02:50 LINDA SHERIDAN MD Discharge Date: 02/12/17 - Discharge Diagnosis (1) Elevated LFTs Is this a current diagnosis for this admission?: Yes Summary: [place] to be most likely secondary to starvation. (2) Sepsis Is this a current diagnosis for this admission?: No Summary: This patient did not have sepsis at any time during his hospitalization. (3) Thrombocytopenia Is this a current diagnosis for this admission?: Yes (4) Weight loss, unintentional Is this a current diagnosis for this admission?: Yes Summary: Etiology of this is most likely depression. The patient had an EGD that did show some gastritis. There is a probable bladder mass present on CT scan which will be worked up as an outpatient. (5) Anemia Is this a current diagnosis for this admission?: Yes (6) Hypokalemia Is this a current diagnosis for this admission?: Yes - Additional Information Resuscitation Status: Full Code Discharge Diet: Cardiac Discharge Activity: Activity As Tolerated Home Medications: Calcium Carbonate [Calcium] 500 mg PO DAILY 02/08/17 Cholecalciferol (Vitamin D3) [Vitamin D3 2000 unit Tablet] 2,000 unit PO DAILY 02/08/17 Ferrous Sulfate [Ferosul] 325 mg PO DAILY 02/08/17 Omeprazole 40 mg PO DAILYP PRN 02/08/17 Sertraline HCl [Zoloft] 200 mg PO DAILYP PRN 02/08/17 Tramadol HCl [Ultram 50 mg Tablet] 50 mg PO DAILYP PRN 02/08/17 Trazodone HCl [Desyrel 50 mg Tablet] 50 mg PO HSP PRN 02/08/17 Finasteride [Proscar 5 mg Tablet] 5 mg PO DAILY #30 tablet 02/12/17 Potassium Chloride [Klor-Con 10 Meq Tablet.sa] 20 meq PO Q12 #60 tablet.sa 02/12 History of Present Illness History of Present Illness: LIA VILLASEÑOR is a 76 year old male who has a history of gastric cancer and has had a partial gastrectomy and diabetes who presents with a one-month history of crampy abdominal pain, anorexia and a 20 pound weight loss. The patient also had elevated liver enzymes. There was initially concern that he may have an occult infection and the ER physician was concerned about the possibility of sepsis. Patient is admitted for further workup. Patient has not had any fevers or chills associated with this. Hospital Course Hospital Course: 76-year-old gentleman who presented with a 20 pound weight loss, anorexia, abdominal pain and abnormal liver enzymes. Patient presented to emergency room and the ER initially was concerned about the possibility of sepsis. Patient had no evidence for infection and there was no sepsis during this hospitalization. The patient was given IV fluids and had improvement in his overall status however he continued to have anorexia. He has a history of having gastric cancer several years ago and had a partial gastrectomy. The patient had an EGD done by gastroenterology and was found to have some gastritis. He has taken Prilosec as an outpatient previously but has been noncompliant with his medications. The patient had a CT scan which does show an abnormality in the bladder however we did not have urology evaluation present at our hospital. The patient upon further questioning has been depressed and has not been eating much at home because he felt that it was too much trouble. He has Ensure available to him but he chooses not to eat. His children at the bedside and when I asked about depression the patient reports he has been feeling somewhat depressed. The patient is encouraged to eat more and is felt he most likely is suffering from depression as the cause for his anorexia and weight loss. He does however have a bladder abnormality on CT scan which will be worked up as an outpatient. I am referring him back to his primary care doctor and he should have a urology evaluation as well as a colonoscopy. He is followed at the [facility] and we will have him set that up. Patient is discharged home in stable condition. He is instructed to take his Prilosec twice a day. Physical Exam Vital Signs: Temp Pulse Resp BP Pulse Ox 97.9 F 70 16 137/85 H 100 02/12/17 08:00 02/12/17 08:00 02/12/17 08:00 02/12/17 08:00 02/12/17 08:00 Intake & Output 02/11/17 02/12/17 02/13/17 06:59 06:59 06:59 Intake Total 4324 1450 Balance 4324 1450 Weight 48.7 kg 46.3 kg General appearance: PRESENT: no acute distress Eye exam: PRESENT: conjunctiva pink. ABSENT: scleral icterus Mouth exam: PRESENT: moist, tongue midline Neck exam: ABSENT: JVD Respiratory exam: PRESENT: clear to auscultation tacho. ABSENT: rales, rhonchi, wheezes Cardiovascular exam: PRESENT: RRR. ABSENT: diastolic murmur, rubs, systolic murmur GI/Abdominal exam: PRESENT: normal bowel sounds, soft. ABSENT: distended, guarding, mass, organolmegaly, rebound, tenderness Extremities exam: ABSENT: calf tenderness, clubbing, pedal edema Neurological exam: PRESENT: alert, awake, oriented to person, oriented to place , oriented to time, oriented to situation, CN II-XII grossly intact. ABSENT: motor sensory deficit Psychiatric exam: PRESENT: appropriate affect Skin exam: PRESENT: dry, intact, warm. ABSENT: cyanosis, rash Results Laboratory Results: 02/12/17 08:47 02/12/17 04:21 02/12/17 02/12/17 02/12/17 04:21 04:21 08:47 WBC Cancelled 5.6 RBC Cancelled 3.10 L Hgb Cancelled 11.3 L Hct Cancelled 29.9 L MCV Cancelled 97 MCH Cancelled 36.4 H MCHC Cancelled 37.7 H RDW Cancelled 15.1 H Plt Count Cancelled 119 L Seg Neutrophils % Cancelled 60.0 Lymphocytes % Cancelled 31.3 Monocytes % Cancelled 7.1 Eosinophils % Cancelled 0.7 Basophils % Cancelled 0.9 Absolute Neutrophils Cancelled 3.3 Absolute Lymphocytes Cancelled 1.8 Absolute Monocytes Cancelled 0.4 Absolute Eosinophils Cancelled 0.0 Absolute Basophils Cancelled 0.1 Sodium 131.2 L Potassium 3.8 Chloride 100 Carbon Dioxide 25 Anion Gap 6 BUN 16 Creatinine 0.82 Est GFR ( Amer) > 60 Est GFR (Non-Af Amer) > 60 Glucose 62 L Calcium 8.6 Impressions: Chest X-Ray 02/07/17 19:29 IMPRESSION: COPD. NO ACUTE RADIOGRAPHIC FINDING IN THE CHEST. AGAIN NOTED IS A POSSIBLE NODULE WITHIN THE LEFT UPPER LOBE. FOLLOW-UP CHEST CT RECOMMENDED. Abdomen Ultrasound 02/07/17 22:22 IMPRESSION: Small perihepatic ascites. Else, no acute findings. Abdomen/Pelvis CT 02/08/17 00:00 IMPRESSION: 1. Nonspecific 0.9 cm ovoid filling defect in the posterior aspect of the right paracentral bladder on post excretion imaging relatively new compared with prior available exam, March 2012. Consider Urology consultation. 2. Cachexia. Limitation. Chest/Abdomen CTA 02/08/17 00:00 IMPRESSION: 1. Small focal sclerosis of the left 6th posterior rib consistent with recent radiographs and not present on prior radiographs from May 2014. Differential diagnosis includes metastatic disease. Consider further evaluation with whole-body bone scan. No acute cardiopulmonary findings. No evidence of pulmonary embolus. Vascular Ultrasound 02/10/17 00:00 IMPRESSION: No evidence of mesenteric arterial stenosis. Qualifiers PATEINT BEING DISCHARGED WITH ANY OF THE FOLLOWING DIAGNOSIS?: No Plan Discharge Plan: Patient is discharged home. [facility] He needs to have urology evaluation as well as a colonoscopy done as an outpatient because of his weight loss. Time Spent: Greater than 30 Minutes
== END 2017-02-12 11:05 | disposition home or self-care (01) | DRG 948 ==
LOC: ER 18:55 → EH 02-08 02:50 → UNDOADMIN 02-08 03:29 → 5 02-08 05:30
PROVIDERS: ADMIT Internal Medicine; ATTEND Internal Medicine
PROC: 0DB68ZX Excision of Stomach, Via Natural or Artificial Opening Endoscopic, Diagnostic (ICD-10-PCS; principal; 2017-02-11 14:00)
DX: R64 Cachexia (principal); Z68.1 Body mass index [BMI] 19.9 or less, adult; K29.70 Gastritis, unspecified, without bleeding; R63.0 Anorexia; R10.9 Unspecified abdominal pain; E11.9 Type 2 diabetes mellitus without complications; C61 Malignant neoplasm of prostate; D69.6 Thrombocytopenia, unspecified; K21.9 Gastro-esophageal reflux disease without esophagitis; F32.9 Major depressive disorder, single episode, unspecified; D64.9 Anemia, unspecified; E87.6 Hypokalemia; R79.89 Other specified abnormal findings of blood chemistry; R93.8 Abnormal findings on diagnostic imaging of other specified body structures; N32.9 Bladder disorder, unspecified; F17.210 Nicotine dependence, cigarettes, uncomplicated; Z82.49 Family history of ischemic heart disease and other diseases of the circulatory system; Z79.899 Other long term (current) drug therapy; Z90.3 Acquired absence of stomach [part of]; Z85.028 Personal history of other malignant neoplasm of stomach; Z86.010 Personal history of colon polyps; Z95.0 Presence of cardiac pacemaker; Z85.01 Personal history of malignant neoplasm of esophagus; Z79.84 Long term (current) use of oral hypoglycemic drugs
CPT/HCPCS: 36415; 36600; 43239; 51701; 71010; 71275; 74177; 76700; 80048; 80053; 81001; 82550; 82553; 82607; 82746; 82803; 82962; 83036; 83605; 83690; 84100; 84443; 84484; 85025; 85610; 87040; 87086; 87088; 87186; 88305; 88312; 88342; 93005; 93010; 93976; 94660; 96361; 96365; 96368; 99291; J0171; J0692; J1200; J1610; J2250; J2310; J2405; J3010; J3370; J3420; J3480; J3490; J7030